=== PATIENT | male | born 1945 | race Caucasian/White ===

== ENCOUNTER 2016-07-10 14:34 | Inpatient (IN) | payer OTHER, BC ==
[~2016-07-10] VITALS: Ht 182.9 cm; Wt 96.5 kg
[~2016-07-10 14:34] MED LIST: ALBUAER2 INH; FLM4 PO; FLUTICASONE PR50 MCG; FRRG PO; HYDC25 PO; LEVO75TA36 PO; LISI40TA PO; LPT/20; METO50TA7 PO; NTRGSL/4 UT
[2016-07-10] MEDS ORDERED: LSX20 PO (14:59)
[2016-07-10] MEDS ORDERED: MONT1TAB3 PO (14:59)
[2016-07-10] MEDS ORDERED: CLOP1TAB15 PO (14:59)
[2016-07-10] MEDS ORDERED: ASPI-435 PO (14:59)
[2016-07-10] MEDS ORDERED: SERT1TAB68 PO (14:59)
[2016-07-10] MEDS ORDERED: SYMIN160 INH (14:59)
--- NOTE | 2016-07-10 15:47 | EMERGENCY ROOM VISIT NOTE ---
History Report prepared by Luciano: Roxanne Padilla Under the Supervision of: Dr. Maribel Forman D.O. First contact with patient: 15:23 Chief Complaint: INFECTION Stated Complaint: STAPH INFECTION Nursing Triage Summary: PT SAID HE HAS A BLOOD AND URINE INFECTION History of Present Illness The patient is a 71 year old male who presents to the Emergency Room with complaints of a persistent infection that began one week ago. Per the patient' s daughter, the patient started with diarrhea and rigors on Sunday. She notes that on the patient went to [facility] and was told that he has a bacterial infection. The patient states that he was there for a few days and was placed on IV antibiotics. The patient notes that they were unsure where the infection was coming from, but stated that it was in his blood. The patient states that he received a phone call from his PCP this morning noting that his blood work had been reviewed and found STAPH in his blood and urine. The patient reports that he has a prosthetic knee and his PCP is concerned that the infection will invade the area. The patient denies any current pain. The patient notes a history of a previous IL, but denies having a defibrillator. He additionally associates a loss of appetite with his symptoms today. Source of History: patient, family (daughter) Onset: one week ago Position: other (global) Quality: other (infection) Timing: other (persistent) Associated Symptoms: + chills (rigors), + diarrhea Note: Associated Symptoms: loss of appetite Review of Systems See HPI for pertinent positives & negatives. A total of 10 systems reviewed and were otherwise negative. Past Medical & Surgical Medical Problems: (1) Acute myocardial infarction (2) Asthma (3) Coronary artery disease (4) Elevated cholesterol (5) Hypertension (6) Hypothyroidism Surgical Problems: (1) H/O heart artery stent (2) H/O oral surgery (3) Status post total knee replacement, right Family History No pertinent family history stated. Social History Smoking Status: Former Smoker Marital Status: Housing Status: lives with significant other Occupation Status: employed Current/Historical Medications Scheduled Aspirin (Aspirin 81), 81 MG PO DAILY Atorvastatin (Lipitor), 80 MG PO DAILY Budesonide/Formoterol Fumarate (Symbicort 160/4.5 Inhaler ), 2 PUFFS INH BID Clopidogrel (Plavix), 75 MG PO DAILY Ferrous Gluconate (Ferrous Gluconate), 324 MG PO BIDM Fluticasone Propionate (Nasal) (Flonase Allergy Relief), 2 SPRAYS ORALIA DAILY Furosemide (Furosemide), 20 MG PO DAILY Hydrochlorothiazide (Hctz), 25 MG PO DAILY Levothyroxine Sodium (Synthroid), 88 MCG PO DAILY Lisinopril (Zestril), 40 MG PO DAILY Metoprolol Succ (Toprol Xl) (Toprol-Xl), 50 MG PO BID Montelukast Sodium (Singulair), 10 MG PO QPM Nitroglycerin (Nitrostat), 0.4 MG UT PRN Sertraline Hcl (Zoloft), 100 MG PO DAILY Tadalafil (Cialis), 20 MG PO UD Tamsulosin Hcl (Flomax), 0.4 MG PO DAILY Scheduled PRN Albuterol Hfa (Ventolin Hfa), 2 PUFFS INH Q6H PRN for SOB/Wheezing Alprazolam (Xanax), 1 TAB PO BID PRN for Anxiety Allergies Coded Allergies: Tetracycline (Verified Allergy, Unknown, RASH, 05/05/14) Physical Exam Vital Signs Date Time Temp Pulse Resp B/P Pulse Ox O2 Delivery O2 Flow Rate FiO2 07/10/16 18:50 53 19 165/83 95 Room Air 07/10/16 17:17 51 07/10/16 16:53 51 16 157/77 96 Room Air 07/10/16 16:53 96 Room Air 07/10/16 15:02 37.1 53 18 147/81 95 Room Air Physical Exam HEENT: Head - normocephalic and atraumatic Pupils are equal, round, and reactive to light. Extraocular eye muscles are intact, and sclera are anicteric. Nose - moist nasal mucosa without discharge. Mouth - moist buccal mucosa. Oropharynx is nonerythematous and there is no tonsillar exudate or edema noted. Neck: Supple; no JVD, nuchal rigidity, cervical lymphadenopathy. Heart: Regular rate and rhythm. There is a normal S1 and S2 with no murmurs, clicks, or gallops appreciated. Lungs: Clear to auscultation bilaterally with no wheezes, rales, or rhonchi. Abdomen: Soft, completely nontender, nondistended, with good bowel sounds. There are no palpable pulsatile masses or hepatosplenomegaly. There is no guarding, rigidity, or rebound noted. Extremities: No evidence of cyanosis, clubbing, or edema. There are easily palpable peripheral pulses. Skin: warm and dry with good turgor and no rashes. Medical Decision & Procedures ER Provider Diagnostic Interpretation: X-ray results as stated below per interpretation by me and the radiologist: CHEST ONE VIEW PORTABLE CLINICAL HISTORY: Sepsis. Status post infection. COMPARISON STUDY: Chest radiograph April 02, 2014. FINDINGS: Lung volumes are normal. No consolidation is identified on this exam. There is no evidence of pulmonary edema. Mild to moderate cardiomegaly is noted. No pneumothorax or pleural effusion is present. IMPRESSION: No acute cardiopulmonary findings. Electronically signed by: Kulwant Beltran M.D. 07/10/2016 4:53 PM Dictated Date/Time: 07/10/2016 4:52 PM Laboratory Results 07/10/16 15:45 Red Blood Count 4.41, Mean Corpuscular Volume 88.0, Mean Corpuscular Hemoglobin 29.7, Mean Corpuscular Hemoglobin Concent 33.8, Mean Platelet Volume 8.9, Neutrophils (%) (Auto) 73.8, Lymphocytes (%) (Auto) 11.6, Monocytes (%) (Auto) 11.0, Eosinophils (%) (Auto) 2.6, Basophils (%) (Auto) 0.4, Neutrophils # (Auto ) 6.23, Lymphocytes # (Auto) 0.98, Monocytes # (Auto) 0.93, Eosinophils # (Auto ) 0.22, Basophils # (Auto) 0.03 07/10/16 15:45 Test 07/10/16 15:45 07/10/16 16:38 White Blood Count 8.44 K/uL (4.8-10.8) Red Blood Count 4.41 M/uL (4.7-6.1) Hemoglobin 13.1 g/dL (14.0-18.0) Hematocrit 38.8 % (42-52) Mean Corpuscular Volume 88.0 fL (80-100) Mean Corpuscular Hemoglobin 29.7 pg (25-34) Mean Corpuscular Hemoglobin Concent 33.8 g/dl (32-36) Platelet Count 237 K/uL (130-400) Mean Platelet Volume 8.9 fL (7.4-10.4) Neutrophils (%) (Auto) 73.8 % Lymphocytes (%) (Auto) 11.6 % Monocytes (%) (Auto) 11.0 % Eosinophils (%) (Auto) 2.6 % Basophils (%) (Auto) 0.4 % Neutrophils # (Auto) 6.23 K/uL (1.4-6.5) Lymphocytes # (Auto) 0.98 K/uL (1.2-3.4) Monocytes # (Auto) 0.93 K/uL (0.11-0.59) Eosinophils # (Auto) 0.22 K/uL (0-0.5) Basophils # (Auto) 0.03 K/uL (0-0.2) RDW Standard Deviation 41.5 fL (36.4-46.3) RDW Coefficient of Variation 12.8 % (11.5-14.5) Immature Granulocyte % (Auto) 0.6 % Immature Granulocyte # (Auto) 0.05 K/uL (0.00-0.02) Anion Gap 9.0 mmol/L (3-11) Est Creatinine Clear Calc Drug Dose 84.0 ml/min Estimated GFR () 88.6 Estimated GFR (Non- 76.5 BUN/Creatinine Ratio 18.7 (10-20) Calcium Level 8.7 mg/dl (8.5-10.1) Total Bilirubin 0.4 mg/dl (0.2-1) Aspartate Amino Transf (AST/SGOT) 31 U/L (15-37) Alanine Aminotransferase (ALT/SGPT) 37 U/L (12-78) Alkaline Phosphatase 93 U/L (45-117) Total Protein 6.7 gm/dl (6.4-8.2) Albumin 3.1 gm/dl (3.4-5.0) Globulin 3.6 gm/dl (2.5-4.0) Albumin/Globulin Ratio 0.9 (0.9-2) Chemistry Specimen Hemolysis Bedside Lactic Acid Venous 0.88 mmol/L (0.90-1.70) Laboratory results per my review. Medications Administered Medications (Trade) Dose Ordered Sig/Macho Route Start Time Stop Time Status Last Admin Dose Admin Cefazolin Sodium (Ancef 1000mg/55 ml D5W) 1,000 mg NOW STAT IV 07/10/16 17:34 07/10/16 17:35 DC 07/10/16 18:53 1,000 MG Procedure The patient was treated with Cefazolin Sodium 1000 mg IV. ED Course 1533: Past medical records reviewed. The patient was evaluated in room C12B. A complete history and physical exam was performed. A septic protocol was performed. I spent some time reviewing the patient's inpatient records from [place]. The patient had coag-negative staph into urine cultures and 2 blood cultures. The patient was initially treated with IV vancomycin and cefepime. That was changed to ceftriaxone during his inpatient hospitalization. He was then discharged home on Augmentin. 1638: I discussed the patient's case with Nury Molina. She states that she will come evaluate the patient. 1703: I spoke to Nury Molina PA-C. I gave her all the patient's medical information. 1733: I spoke to Nury Molina PA-C. She recommends that the patient is evaluated further and states that the patient should be given a dose of Ancef. 1734: Ordered Cefazolin Sodium 1000 mg IV. 1750: I discussed the patient's case with Dr. Zayas, He is going to evaluate the patient for further treatment. Medical Decision The patient is a 71 year old male who presents to the ED with diagnosed bacteremia. Differential diagnosis includes persistent bacteremia, c-diff, medication side effects. Lab interpretation: normal white count, hemoglobin 13.1, lactic acid 0.8, LFTs are normal, BUN 19, creatinine 1. The patient had been embedded at [facility] where he was diagnosed with coag-negative staph in his urine and blood. He was discharged now this weekend on Augmentin. The PCP obtained his records from the weekend admission and were concerned about the possibility of persistent bacteremia and that the patient require further workup especially since he has a prosthetic knee. Dr. Okeefe contacted Sofia Bullock PA-C and requested that the patient be transferred here for evaluation and admission. Consults Time Called: 1630 Consulting Physician: Nury Molina PA-C Returned Call: 1638 I discussed the patient's case with Nury Molina PA-C. She states that she will come evaluate the patient. Additional Consults: Time Called: 1733 Consulted Physician: CUCO Velez Returned Call: 1750 Additional Comments: I discussed the patient's case with CUCO Velez. He is going to evaluate the patient for further treatment. Impression Primary Impression: Bacteremia Scribe Attestation The scribe's documentation has been prepared under my direction and personally reviewed by me in its entirety. I confirm that the note above accurately reflects all work, treatment, procedures, and medical decision making performed by me. Departure Information Dispostion Being Evaluated By Hospitalist Leny Leigh M.D. (PCP)
[2016-07-10 16:32] LABS: BASO % 0.4 %; BASO ABS # 0.03 K/uL (0-0.2); COMPLETE YES; EOS % 2.6 %; HEMATOCRIT 38.8 % (42-52); IG% 0.6 %; LYMPH % 11.6 %; LYMPH ABS # 0.98 K/uL (1.2-3.4); MEAN CORPUSCULAR HEMOGLOBIN 29.7 pg (25-34); MEAN CORPUSCULAR HGB CONC 33.8 g/dl (32-36); MEAN PLATELET VOLUME 8.9 fL (7.4-10.4); NEUT % 73.8 %; PLATELET COUNT 237 K/uL (130-400); RED BLOOD COUNT 4.41 M/uL (4.7-6.1); WHITE BLOOD COUNT 8.44 K/uL (4.8-10.8)
[2016-07-10 16:41] LABS: BUN/CREATININE RATIO 18.7 (10-20); CALCIUM 8.7 mg/dl (8.5-10.1)
[2016-07-10 16:44] LABS: ALB/GLOB RATIO 0.9 (0.9-2)
--- NOTE | 2016-07-10 16:55 | DIAGNOSTIC IMAGING REPORT ---
CHEST ONE VIEW PORTABLE CLINICAL HISTORY: Sepsis. Status post infection. COMPARISON STUDY: Chest radiograph April 02, 2014. FINDINGS: Lung volumes are normal. No consolidation is identified on this exam. There is no evidence of pulmonary edema. Mild to moderate cardiomegaly is noted. No pneumothorax or pleural effusion is present. IMPRESSION: No acute cardiopulmonary findings. Electronically signed by: Kulwant Beltran M.D. 07/10/2016 4:53 PM Dictated Date/Time: 07/10/2016 4:52 PM
[2016-07-10] MEDS ORDERED: TAMS0.4C38 PO (16:57)
[2016-07-10] MEDS ORDERED: HYDR25TA4 PO (16:57)
[2016-07-10] MEDS ORDERED: ATOR-26 PO (16:57)
[2016-07-10] MEDS ORDERED: VNTHFA/IN INH (16:57)
[2016-07-10] MEDS ORDERED: FLUT0.15 NAE (16:57)
[2016-07-10] MEDS ORDERED: LEVO88TA PO (16:57)
[2016-07-10] MEDS ORDERED: ALPR0.25 PO (16:57)
[2016-07-10] MEDS ORDERED: TADA20TA PO (16:57)
[2016-07-10] MEDS ORDERED: CEFAZOLIN SOD 1000MG/55 ML D5W IV STA (17:34)
[2016-07-10] MEDS ORDERED: ONDANSETRON INJ 2 MG/ML 2 ML VIAL IV PRN (20:15)
[2016-07-10] MEDS ORDERED: ALPRAZOLAM 0.25 MG TAB PO PRN (20:15)
[2016-07-10] MEDS ORDERED: NITROGLYCERIN 0.4 MG SL PER TAB CHARGE UT SCH (20:15)
[2016-07-10] MEDS ORDERED: ALUMINUM/MAGNESIUM/SIMETH (MAALOX MAX) 30 ML UDC PO PRN (20:15)
[2016-07-10] MEDS ORDERED: ALBUTEROL HFA 8 GM INHALER INH PRN (20:15)
[2016-07-10] MEDS ORDERED: POLYETHYLENE (MIRALAX) 17 GM PACK PO PRN (20:15)
[2016-07-10] MEDS ORDERED: MAGNESIUM HYDROXIDE SUSP 30 ML UDC PO PRN (20:15)
--- NOTE | 2016-07-10 20:27 | History and Physical ---
History & Physical Date & Time of Service: July 10, 2016 at 20:26 Chief Complaint: Staph Infection Primary Care Physician: Leny Okeefe M.D. Past Medical/Surgical History Medical Problems: (1) Acute myocardial infarction Status: Resolved (2) Asthma Status: Chronic (3) Coronary artery disease Status: Chronic (4) Elevated cholesterol Status: Chronic (5) Hypertension Status: Chronic (6) Hypothyroidism Status: Chronic Surgical Problems: (1) H/O heart artery stent Status: Resolved (2) H/O oral surgery Status: Resolved (3) Status post total knee replacement, right Status: Resolved Social History Smoking Status: Former Smoker Marital Status: Housing status: lives with family Occupational Status: employed Immunizations History of Influenza Vaccine: N/A History of Tetanus Vaccine?: No History of Pneumococcal: No History of Hepatitis B Vaccine: No Allergies Coded Allergies: Tetracycline (Verified Allergy, Unknown, RASH, 05/05/14) Home Medications Scheduled Aspirin (Aspirin 81), 81 MG PO DAILY Atorvastatin (Lipitor), 80 MG PO DAILY Budesonide/Formoterol Fumarate (Symbicort 160/4.5 Inhaler ), 2 PUFFS INH BID Clopidogrel (Plavix), 75 MG PO DAILY Ferrous Gluconate (Ferrous Gluconate), 324 MG PO BIDM Fluticasone Propionate (Nasal) (Flonase Allergy Relief), 2 SPRAYS ORALIA DAILY Furosemide (Furosemide), 20 MG PO DAILY Hydrochlorothiazide (Hctz), 25 MG PO DAILY Levothyroxine Sodium (Synthroid), 88 MCG PO DAILY Lisinopril (Zestril), 40 MG PO DAILY Metoprolol Succ (Toprol Xl) (Toprol-Xl), 50 MG PO BID Montelukast Sodium (Singulair), 10 MG PO QPM Nitroglycerin (Nitrostat), 0.4 MG UT PRN Sertraline Hcl (Zoloft), 100 MG PO DAILY Tadalafil (Cialis), 20 MG PO UD Tamsulosin Hcl (Flomax), 0.4 MG PO DAILY Scheduled PRN Albuterol Hfa (Ventolin Hfa), 2 PUFFS INH Q6H PRN for SOB/Wheezing Alprazolam (Xanax), 1 TAB PO BID PRN for Anxiety Physical Exam Vital Signs Date Time Temp Pulse Resp B/P Pulse Ox O2 Delivery O2 Flow Rate FiO2 5/1/17 18:50 53 19 165/83 95 Room Air 07/10/16 17:17 51 07/10/16 16:53 51 16 157/77 96 Room Air 07/10/16 16:53 96 Room Air 07/10/16 15:02 37.1 53 18 147/81 95 Room Air Diagnostics Laboratory Results Results Past 24 Hours Test 07/10/16 15:45 07/10/16 16:38 Range/Units White Blood Count 8.44 4.8-10.8 K/uL Red Blood Count 4.41 4.7-6.1 M/uL Hemoglobin 13.1 14.0-18.0 g/dL Hematocrit 38.8 42-52 % Mean Corpuscular Volume 88.0 80-100 fL Mean Corpuscular Hemoglobin 29.7 25-34 pg Mean Corpuscular Hemoglobin Concent 33.8 32-36 g/dl Platelet Count 237 130-400 K/uL Mean Platelet Volume 8.9 7.4-10.4 fL Neutrophils (%) (Auto) 73.8 % Lymphocytes (%) (Auto) 11.6 % Monocytes (%) (Auto) 11.0 % Eosinophils (%) (Auto) 2.6 % Basophils (%) (Auto) 0.4 % Neutrophils # (Auto) 6.23 1.4-6.5 K/uL Lymphocytes # (Auto) 0.98 1.2-3.4 K/uL Monocytes # (Auto) 0.93 0.11-0.59 K/uL Eosinophils # (Auto) 0.22 0-0.5 K/uL Basophils # (Auto) 0.03 0-0.2 K/uL RDW Standard Deviation 41.5 36.4-46.3 fL RDW Coefficient of Variation 12.8 11.5-14.5 % Immature Granulocyte % (Auto) 0.6 % Immature Granulocyte # (Auto) 0.05 0.00-0.02 K/uL Sodium Level 144 136-145 mmol/L Potassium Level 4.0 3.5-5.1 mmol/L Chloride Level 108 98-107 mmol/L Carbon Dioxide Level 27 21-32 mmol/L Anion Gap 9.0 3-11 mmol/L Blood Urea Nitrogen 19 7-18 mg/dl Creatinine 1.00 0.60-1.40 mg/dl Est Creatinine Clear Calc Drug Dose 84.0 ml/min Estimated GFR () 88.6 Estimated GFR (Non- 76.5 BUN/Creatinine Ratio 18.7 10-20 Random Glucose 109 70-99 mg/dl Calcium Level 8.7 8.5-10.1 mg/dl Total Bilirubin 0.4 0.2-1 mg/dl Aspartate Amino Transf (AST/SGOT) 31 15-37 U/L Alanine Aminotransferase (ALT/SGPT) 37 12-78 U/L Alkaline Phosphatase 93 45-117 U/L Total Protein 6.7 6.4-8.2 gm/dl Albumin 3.1 3.4-5.0 gm/dl Globulin 3.6 2.5-4.0 gm/dl Albumin/Globulin Ratio 0.9 0.9-2 Chemistry Specimen Hemolysis Bedside Lactic Acid Venous 0.88 0.90-1.70 mmol/L Microbiology Results 07/10/16 Blood Culture, Received Pending 07/10/16 Blood Culture, Received Pending Impression Assessment and Plan admit #[id number] VTE Prophylaxis VTE Risk Assessment Done? Y/N: Yes Risk Level: Moderate Given or contraindicated: Enoxaparin (Lovenox)SQ
[2016-07-10 21:04] VITALS: BP 180/81; PULSE 51; TEMP 36.8; O2SAT 97
[2016-07-10] MEDS: BUDESONIDE/FORMOTEROL FUMARATE 160/4.5 60 PUFFS/INHALER INH SCH (22:35)
[2016-07-10] MEDS: METOPROLOL SUCC 50MG EXT REL TAB PO SCH (22:35)
[2016-07-10] MEDS: MONTELUKAST SOD 10 MG TAB PO SCH (22:36)
[2016-07-10 22:45] VITALS: BP 180/81; PULSE 51; TEMP 36.8; O2SAT 97; Ht 182.9 cm; Wt 96.5 kg
[2016-07-10 23:18] VITALS: BP 183/85; PULSE 73; TEMP 37.4; O2SAT 95
[2016-07-11] MEDS: CEFAZOLIN IV 1,000 MG in DEXTROSE 5% 50ML 50 ML IV SCH ×2 (00:03→07:37)
--- NOTE | 2016-07-11 00:04 | HISTORY & PHYSICAL EXAMINATION ---
DATE OF ADMISSION: 07/10/2016 CHIEF COMPLAINT: Sent by Dr. Okeefe. HISTORY OF PRESENT ILLNESS: The patient is a very pleasant 71-year-old male, who notes that he was in [facility] just a couple of days ago, discharged on I believe Keflex. He had apparently had bacteremia with an acute illness that started as what seems to be gastroenteritis. He was exceedingly symptomatic when he was admitted there, apparently he still has a little bit of diarrhea that may be like 3 times a day or lasts without a whole lot of abdominal pain and no other acute active symptoms. While still waiting on records from [facility], what I can see on review of his chart in [employer] was that on July [address] abdomen and pelvis showing small bilateral pleural effusions and hiatal hernia. Liver was unremarkable. Spleen was unremarkable. Gallbladder and bile ducts unremarkable. Pancreas unremarkable. Adrenal was unremarkable. Kidneys and ureter with normal parenchymal enhancement of both kidneys, 13 mm cyst in the mid to lower pole of left kidney, 2 cm cyst in the medial mid to lower pole of the left kidney and a lobulate 2.3 cm cyst in the lower portion of the right kidney. No nephrolithiasis or hydronephrosis, mild perinephric stranding, bladder unremarkable, prostate enlarged and heterogenous. Lymph nodes, no pathologic krari enlargement of the abdomen, pelvis or inguinal region. Atherosclerotic change of the aortoiliac system, diverticula present in the descending and sigmoid colon. No evidence of acute diverticulitis. Appendix seen and does not appear abnormal. No free fluid in the abdomen and pelvis, fat containing right inguinal hernia ring noted and degenerative changes in the spine. Essentially, the conclusion was mild uncomplicated diverticulosis and it was done under the diagnosis of abdominal pain and fever. On the same day, a chest x-ray was done which showed no acute cardiopulmonary findings; appears to have been a two-view PA and lateral. His blood culture results showed greater than 100,000 staph and not staph aureus, susceptible to gentamicin, nitrofurantoin, oxacillin, resistant to pen G, susceptible to tetracycline, trimethoprim, sulfamethoxazole and vancomycin. It appears Dr. Okeefe requested an urgent ID referral and then ID requested that the patient be sent to the ER. Today, he is asymptomatic other than a little bit of diarrhea. He notes no pain that is not his chronic pain, no shortness of breath that is not chronic related to his asthma, no joint pain, no red hot swollen joints and his only real acute complaint is a now resolving diarrhea. REVIEW OF SYSTEMS: Otherwise negative, except for as above. PAST MEDICAL HISTORY: Includes allergic rhinitis; arthritis; asthma; BPH; coronary artery disease status post cath and stenting, he apparently had a small VT, but it provoked a cardiac arrest at that time, that was about a decade ago; Judi's thyroiditis now with hypothyroidism; hypertension; hyperlipidemia; low testosterone and OCD. MEDICATIONS: Alprazolam 0.25 b.i.d. p.r.n., aspirin 81 mg daily, atorvastatin 80 mg daily, Cialis 20 mg p.r.n., Plavix 75 mg daily, fluticasone 50 mcg two sprays each nostril daily, Lasix 20 mg daily, hydrochlorothiazide 25 mg daily, Synthroid 88 mcg daily, lisinopril 40 mg daily, metoprolol ER 50 mg b.i.d., Singulair 10 mg daily, sertraline 100 mg daily, Symbicort 160/4.5 two puffs b.i.d., Flomax 0.4 at bedtime, albuterol two puffs q. 4 hours p.r.n. shortness of breath or wheeze. PAST SURGICAL HISTORY: Includes; cath and stenting, knee replacement, hernia repair and hand surgery. FAMILY HISTORY: Includes cancer and diabetes. SOCIAL HISTORY: He is a former smoker. . ALLERGIES: TETRACYCLINE. PHYSICAL EXAMINATION: VITAL SIGNS: Temperature 37.1, pulse 53, respiratory rate 18, blood pressure 147/81 and 95% on room air. GENERAL: He is awake, alert, oriented x3, pleasant, in no acute distress. He does have constant throat clearing, which he relates to postnasal drip. HEENT: Normocephalic and atraumatic. Mucous membranes are moist. CARDIOVASCULAR: Regular without rubs, murmurs or gallops. LUNGS: Clear to auscultation bilaterally. No rales, rhonchi or wheezes, with good effort. ABDOMEN: Soft, nondistended, nontender. No masses or organomegaly. EXTREMITIES: Without cyanosis, clubbing or edema. No calf tenderness. SKIN: Shows no rashes, no pallor or icterus. no stigmata of septic emboli. NEUROLOGIC: Shows cranial nerves II-XII to be grossly intact. Gross motor and sensory are intact. SKIN: Shows no rashes, no pallor or icterus. MUSCULOSKELETAL: Shows no joint effusions. Normal alignment and mobility. MENTAL STATE: Shows good recent and remote recall. Normal mood and affect. Good judgment and insight. LABORATORIES AND DIAGNOSTICS: CBC shows a white count of 8.44, hemoglobin 13.1, platelets 237. Complete metabolic panel with sodium 144, potassium 4, chloride 108, CO2 27, BUN 19, creatinine 1, calcium 8.7, glucose 109, lactate 0.88. Total bili 0.4 with an AST of 31, ALT 37, alkaline phosphatase 93, total protein 6.7, albumin 3.1. Chest x-ray shows no acute cardiopulmonary findings. ASSESSMENT AND PLAN: 1. Bacteremia and infectious disease referral. He was sent to the Emergency Room. We will consult them for further recommendations. Check an echocardiogram, continue him on gram positive coverage with Ancef. Blood cultures have been drawn and are pending and we will follow serial exams, although fortunately he shows no stigmata of sequelae. 2. Coronary artery disease. Continue his home medications. 3. Asthma. Continue his Symbicort and Ventolin p.r.n. 4. Benign prostatic hypertrophy. Continue his Flomax. Outpatient evaluation; given an enlarged heterogenous prostate on his CT. 5. Deep venous thrombosis prophylaxis, Lovenox. 6. Hyperlipidemia. Continue his Lipitor. 7. Hypothyroidism. Continue his Synthroid. 8. Hypertension. Continue his diuretics, MARQUITA inhibitor and beta meera. 9. Obsessive compulsive disorder, continue his sertraline. [facility]
[2016-07-11] MEDS ORDERED: IV FLUIDS COMPLETED PRN (00:45)
[2016-07-11] MEDS: LEVOTHYROXINE 88 MCG TAB PO SCH (06:06)
[2016-07-11 07:29] VITALS: BP 196/100; PULSE 59; TEMP 36.7; O2SAT 96
[2016-07-11] MEDS: SERTRALINE HCL 100 MG TAB PO SCH (07:40)
[2016-07-11] MEDS: LISINOPRIL 40 MG TAB PO SCH (07:40)
[2016-07-11] MEDS: ENOXAPARIN 40 MG/0.4 ML SYR SQ SCH (07:40)
[2016-07-11] MEDS: CLOPIDOGREL BISULFATE 75 MG TAB PO SCH (07:40)
[2016-07-11] MEDS: METOPROLOL SUCC 50MG EXT REL TAB PO SCH ×2 (07:41→20:00)
[2016-07-11] MEDS: FUROSEMIDE 20 MG TAB PO SCH (07:41)
[2016-07-11] MEDS: ASPIRIN 81 MG ECTAB PO SCH (07:41)
[2016-07-11] MEDS: FERROUS GLUCONATE 324 MG TAB PO SCH ×2 (07:41→17:00)
[2016-07-11] MEDS: HYDROCHLOROTHIAZIDE 25 MG TAB PO SCH (07:41)
[2016-07-11] MEDS: TAMSULOSIN HCL 0.4 MG CAP PO SCH (07:41)
[2016-07-11] MEDS: FLUTICASONE PROPIONATE NA SPR 16 GM BTL NAE SCH (07:42)
[2016-07-11] MEDS: BUDESONIDE/FORMOTEROL FUMARATE 160/4.5 60 PUFFS/INHALER INH SCH ×2 (07:42→19:44)
[2016-07-11] MEDS: ATORVASTATIN 40 MG TAB PO SCH (07:42)
--- NOTE | 2016-07-11 09:25 | Medical Consult ---
Consultation Date of Consultation: July 10, 2016. Attending Physician: Gonzalez Zayas D.O. Reason for Consultation: Bacteremia History of Present Illness Patient is a 71 yo male presenting to the ED for evaluation by recommendation of Dr. Okeefe, the patient's PCP and the ID service. I received a phone call this afternoon about seeing this patient for 'staph sepsis' from recent admission to [facility]. The patient had previously been experiencing fever at home, rigors, sweats, and overall malaise. The patient was found to have coag-negative staph bacteremia and received 2-3 days of IV abx therapy at [facility]. He was then discharged home on PO antibiotic therapy. He did not have repeat blood cultures completed. He was sent home with oral antibiotic therapy. His primary care physician was concerned with his discharge on oral antibiotics and to due to his history of bilateral prosthetic knees. Patient overall has been feeling better prior to current admission. Since admission, the patient did have repeat blood cultures drawn which are currently pending. His platelet was 8.44. His creatinine was 1.00. Hepatitis-C screen is negative. He did have a chest x-ray as well which showed no acute cardiopulmonary findings. I did discuss this patient with Dr. Okeefe and Dr. Forman. Initial blood cultures from admission to [facility] growing Coag-negative staph resistant to PCN but otherwise sensitive to oxacillin, gentamicin, macrobid, tetracycline, Bactrim, and Vancomycin, and Urine culture grew staph species, not S. aureus with the same sensitivity pattern. Confirmed that a repeat set of blood culture was not drawn at [facility]. CT scan was completed and reviewed from [facility]. Mild perinephric stranding was noted on the report, but laterality was not specified. Past Medical/Surgical History Medical Problems: (1) Bacteremia Status: Acute Medical Problems: (1) Acute myocardial infarction (2) Asthma (3) Coronary artery disease (4) Elevated cholesterol (5) Hypertension (6) Hypothyroidism Surgical Problems: (1) H/O heart artery stent (2) H/O oral surgery (3) Status post total knee replacement, right Family History Noncontributory Social History Smoking Status: Former Smoker Marital Status: Housing Status: lives with significant other Occupation Status: employed Allergies Coded Allergies: Tetracycline (Verified Allergy, Unknown, RASH, 05/05/14) Home Medications Reported Home Medications Medications Dose Route/Sig Max Daily Dose Days Date Category Ventolin Hfa (Albuterol) 200 Puffs/34596 Mcg Aers 2 Puffs INH Q6H PRN 07/10/16 Reported Synthroid (Levothyroxine Sodium) 88 Mcg Tab 88 Mcg PO DAILY 07/10/16 Reported Hctz (Hydrochlorothiazide) 25 Mg Tab 25 Mg PO DAILY 07/10/16 Reported Flonase Allergy Relief (Fluticasone Propionate (Nasal)) 50 Mcg/Act Spr 2 Sprays ORLAIA DAILY 07/10/16 Reported Cialis (Tadalafil) 20 Mg Tab 20 Mg PO UD 07/10/16 Reported Lipitor (Atorvastatin Calcium) 80 Mg Tab 80 Mg PO DAILY 07/10/16 Reported Xanax (Alprazolam) 0.25 Mg Tab 1 Tab PO BID PRN 30 07/10/16 Reported Flomax (Tamsulosin Hcl) 0.4 Mg Cap 0.4 Mg PO DAILY 07/10/16 Reported Ferrous Gluconate 324 Mg Tab 324 Mg PO BIDM 05/06/14 Rx Plavix (Clopidogrel Bisulfate) 75 Mg Tab 75 Mg PO DAILY 04/02/14 Reported Zoloft (Sertraline Hcl) 100 Mg Tab 100 Mg PO DAILY 04/02/14 Reported Furosemide 20 Mg Tab 20 Mg PO DAILY 04/02/14 Reported Symbicort 160/4.5 Inhaler (Budesonide/Formoterol Fumarate) Aero 2 Puffs INH BID 04/02/14 Reported Singulair (Montelukast Sodium) 10 Mg Tab 10 Mg PO QPM 04/02/14 Reported Aspirin 81 (Aspirin) 81 Mg Tab 81 Mg PO DAILY 04/02/14 Reported Toprol-Xl (Metoprolol Succinate) 50 Mg Tabcr 50 Mg PO BID 04/20/09 Reported Zestril (Lisinopril) 40 Mg Tab 40 Mg PO DAILY 04/20/09 Reported Nitrostat (Nitroglycerin) 0.4 Mg Tab 0.4 Mg UT PRN 04/20/09 Reported Current Inpatient Medications Current Inpatient Medications Medications (Trade) Dose Ordered Sig/Macho Route Start Time Stop Time Status Last Admin Dose Admin Albuterol (Ventolin Hfa Inhaler) 2 puffs Q6H PRN INH 07/10/16 20:15 08/09/16 20:14 Alprazolam (Xanax Tab) 0.25 mg BID PRN PO 07/10/16 20:15 08/09/16 20:14 Aspirin (Ecotrin Tab) 81 mg DAILY PO 07/11/16 08:00 08/10/16 08:59 07/11/16 07:41 81 MG Atorvastatin Calcium (Lipitor Tab) 80 mg DAILY PO 07/11/16 08:00 08/10/16 08:59 07/11/16 07:42 80 MG Budesonide/ Formoterol Fumarate (Symbicort 160/ 4.5 Inh) 2 puffs BID INH 07/10/16 20:59 08/09/16 20:59 07/11/16 07:42 2 PUFFS Clopidogrel Bisulfate (plAVix TAB) 75 mg DAILY PO 07/11/16 08:00 08/10/16 08:59 07/11/16 07:40 75 MG Ferrous Gluconate (Ferrous Gluconate Tab) 324 mg BIDM PO 07/11/16 08:00 08/10/16 07:59 07/11/16 07:41 324 MG Fluticasone Propionate (Flonase Nasal [place]) 2 sprays DAILY ORALIA 07/11/16 08:00 08/10/16 08:59 07/11/16 07:42 2 SPRAYS Furosemide (Lasix Tab) 20 mg DAILY PO 07/11/16 08:00 08/10/16 08:59 07/11/16 07:41 20 MG Hydrochlorothiazide (Hydrochlorothiazide Tab) 25 mg DAILY PO 07/11/16 08:00 08/10/16 08:59 07/11/16 07:41 25 MG Levothyroxine Sodium (Synthroid Tab) 88 mcg DAILYBB PO 07/11/16 06:30 08/10/16 06:29 07/11/16 06:06 88 MCG Lisinopril (Zestril Tab) 40 mg DAILY PO 07/11/16 08:00 08/10/16 08:59 07/11/16 07:40 40 MG Metoprolol Succinate (Toprol Xl Tab) 50 mg BID PO 07/10/16 20:59 08/09/16 20:59 07/11/16 07:41 50 MG Montelukast Sodium (Singulair Tab) 10 mg QPM PO 07/10/16 21:00 08/09/16 20:59 07/10/16 22:36 10 MG Nitroglycerin (Nitrostat Tab) 0.4 mg PRN UT 07/10/16 20:15 08/09/16 20:14 Sertraline HCl (Zoloft Tab) 100 mg DAILY PO 07/11/16 08:00 08/10/16 08:59 07/11/16 07:40 100 MG Tamsulosin HCl (Flomax Cap) 0.4 mg DAILY PO 07/11/16 08:00 08/10/16 08:59 07/11/16 07:41 0.4 MG Enoxaparin Sodium (Lovenox Inj) 40 mg Q24H SQ 07/11/16 08:00 08/10/16 07:59 07/11/16 07:40 40 MG Acetaminophen (Tylenol Tab) 650 mg Q4H PRN PO 07/10/16 20:15 08/09/16 20:14 Al Hydrox/Mg Hydrox/Simethicone (Maalox Max Susp) 15 ml Q4H PRN PO 07/10/16 20:15 08/09/16 20:14 Magnesium Hydroxide (Milk Of Magnesia Susp) 30 ml Q6H PRN PO 07/10/16 20:15 08/09/16 20:14 Polyethylene (Miralax Powder Packet) 17 gm DAILY PRN PO 07/10/16 20:15 08/09/16 20:14 Ondansetron HCl 4 mg 4 mg Q6H PRN IV 07/10/16 20:15 08/09/16 20:14 Cefazolin Sodium/ Dextrose (Ancef Iv/D5 50ml) 55 ml @ 100 mls/hr Q8H IV 07/11/16 00:00 07/25/16 00:00 07/11/16 07:37 100 MLS/HR Miscellaneous (Iv Fluids Completed) 1 ea PRN PRN N/A 07/11/16 00:45 07/11/17 00:44 Review of Systems Constitutional: No chills, No fever, No sweats, No weakness Eyes: No worsening of vision ENT: No hearing loss Respiratory: No cough, No shortness of breath Cardiovascular: No chest pain Abdomen: + diarrhea (mild), No pain, No vomiting Musculoskeletal: + problem reported (hx bilateral TKA), No joint pain Genitourinary - Male: + problem reported (hx prostatomegaly), No dysuria, No hematuria Neurologic: No numbness/tingling Integumentary: No itch, No new/changing skin lesions, No rash Physical Exam Date Time Temp Pulse Resp B/P Pulse Ox O2 Delivery O2 Flow Rate FiO2 07/11/16 07:29 36.7 59 18 196/100 96 Room Air 07/11/16 00:00 Room Air 07/10/16 23:18 37.4 73 18 183/85 95 Room Air 07/10/16 22:45 36.8 51 20 180/81 97 Room Air 07/10/16 21:04 36.8 51 20 180/81 97 07/10/16 20:46 55 18 155/73 94 07/10/16 20:30 55 18 155/73 94 Room Air 07/10/16 18:50 53 19 165/83 95 Room Air 07/10/16 17:17 51 07/10/16 16:53 51 16 157/77 96 Room Air 07/10/16 16:53 96 Room Air 07/10/16 15:02 37.1 53 18 147/81 95 Room Air General Appearance: WD/WN, no apparent distress Head: normocephalic, atraumatic Eyes: normal inspection, sclerae normal ENT: hearing grossly normal Neck: supple, trachea midline Respiratory/Chest: chest non-tender, lungs clear, normal breath sounds, no respiratory distress, no accessory muscle use Cardiovascular: + bradycardia Abdomen/GI: normal bowel sounds, non tender, soft Back: normal inspection Extremities/Musculoskelatal: normal inspection, normal range of motion Neurologic/Psych: alert, normal mood/affect Skin: normal color, warm/dry, no rash Laboratory Results CHEST ONE VIEW PORTABLE CLINICAL HISTORY: Sepsis. Status post infection. COMPARISON STUDY: Chest radiograph April 02, 2014. FINDINGS: Lung volumes are normal. No consolidation is identified on this exam. There is no evidence of pulmonary edema. Mild to moderate cardiomegaly is noted. No pneumothorax or pleural effusion is present. IMPRESSION: No acute cardiopulmonary findings. Item Value Date Time Blood Culture Received 07/10/16 1630 Blood Pending Blood Culture Received 07/10/16 1545 Blood Pending Last 24 Hours Test 07/10/16 15:45 07/10/16 16:38 07/11/16 06:09 White Blood Count 8.44 K/uL Red Blood Count 4.41 M/uL Hemoglobin 13.1 g/dL Hematocrit 38.8 % Mean Corpuscular Volume 88.0 fL Mean Corpuscular Hemoglobin 29.7 pg Mean Corpuscular Hemoglobin Concent 33.8 g/dl Platelet Count 237 K/uL Mean Platelet Volume 8.9 fL Neutrophils (%) (Auto) 73.8 % Lymphocytes (%) (Auto) 11.6 % Monocytes (%) (Auto) 11.0 % Eosinophils (%) (Auto) 2.6 % Basophils (%) (Auto) 0.4 % Neutrophils # (Auto) 6.23 K/uL Lymphocytes # (Auto) 0.98 K/uL Monocytes # (Auto) 0.93 K/uL Eosinophils # (Auto) 0.22 K/uL Basophils # (Auto) 0.03 K/uL RDW Standard Deviation 41.5 fL RDW Coefficient of Variation 12.8 % Immature Granulocyte % (Auto) 0.6 % Immature Granulocyte # (Auto) 0.05 K/uL Sodium Level 144 mmol/L Potassium Level 4.0 mmol/L Chloride Level 108 mmol/L Carbon Dioxide Level 27 mmol/L Anion Gap 9.0 mmol/L Blood Urea Nitrogen 19 mg/dl Creatinine 1.00 mg/dl Est Creatinine Clear Calc Drug Dose 84.0 ml/min Estimated GFR () 88.6 Estimated GFR (Non- 76.5 BUN/Creatinine Ratio 18.7 Random Glucose 109 mg/dl Calcium Level 8.7 mg/dl Total Bilirubin 0.4 mg/dl Aspartate Amino Transf (AST/SGOT) 31 U/L Alanine Aminotransferase (ALT/SGPT) 37 U/L Alkaline Phosphatase 93 U/L Total Protein 6.7 gm/dl Albumin 3.1 gm/dl Globulin 3.6 gm/dl Albumin/Globulin Ratio 0.9 Chemistry Specimen Hemolysis Bedside Lactic Acid Venous 0.88 mmol/L Prothrombin Time 11.0 SECONDS Prothromb Time International Ratio 1.0 Assessment & Plan Patient recently admitted to [facility] for concerns of acute illness. The patient was found to have Coag-negative staph bacteremia, staph, non-staph aureus UTI (via previous cultures), and sepsis. He was treated with IV therapy for 2-3 days and discharged home on PO abx. Readmitted with concerns of undertreatment of coag-negative staph bacteremia. Current blood cultures are pending, but patient was placed on IV Ancef in the ED which based on previous culture is appropriate, but will increase to 2 g. Will check TTE, and also will consider further lumbar/renal imaging pending blood culture results with continued left lumbar/flank pain. We will continue to follow. PROVIDER ADDENDUM: Pt. examined and reviewed with Ms. Bullock. Agree with above assessment.
[2016-07-11 10:54] VITALS: BP 135/69; PULSE 87
--- NOTE | 2016-07-11 13:06 | Infectious Disease Progress Nt ---
Progress Note Date of Service July 11, 2016. Subjective Pt evaluation today including: conversation w/ patient, conversation w/ family (sister), physical exam, chart review, lab review, review of studies, conversation w/ client support consultant (Dr. Bynum), review of inpatient medication list Patient continues to feel well. His blood cultures are pending. Echo pending completion. Patient is having urinary frequency, but this is chronic. He also complains of left flank pain, but that is also chronic in nature. He continues to have some very mild loose stools as well. He states that these are gradually becoming more formed. He otherwise is tolerating his current antibiotic therapy well. He is on IV Ancef. All Other Systems: Reviewed and Negative Medications Current Inpatient Medications Medications (Trade) Dose Ordered Sig/Macho Route Start Time Stop Time Status Last Admin Dose Admin Albuterol (Ventolin Hfa Inhaler) 2 puffs Q6H PRN INH 07/10/16 20:15 08/09/16 20:14 Alprazolam (Xanax Tab) 0.25 mg BID PRN PO 07/10/16 20:15 08/09/16 20:14 Aspirin (Ecotrin Tab) 81 mg DAILY PO 07/11/16 08:00 08/10/16 08:59 07/11/16 07:41 81 MG Atorvastatin Calcium (Lipitor Tab) 80 mg DAILY PO 07/11/16 08:00 08/10/16 08:59 07/11/16 07:42 80 MG Budesonide/ Formoterol Fumarate (Symbicort 160/ 4.5 Inh) 2 puffs BID INH 07/10/16 20:59 08/09/16 20:59 07/11/16 07:42 2 PUFFS Clopidogrel Bisulfate (plAVix TAB) 75 mg DAILY PO 07/11/16 08:00 08/10/16 08:59 07/11/16 07:40 75 MG Ferrous Gluconate (Ferrous Gluconate Tab) 324 mg BIDM PO 07/11/16 08:00 08/10/16 07:59 07/11/16 07:41 324 MG Fluticasone Propionate (Flonase Nasal [place]) 2 sprays DAILY ORALIA 07/11/16 08:00 08/10/16 08:59 07/11/16 07:42 2 SPRAYS Furosemide (Lasix Tab) 20 mg DAILY PO 07/11/16 08:00 08/10/16 08:59 07/11/16 07:41 20 MG Hydrochlorothiazide (Hydrochlorothiazide Tab) 25 mg DAILY PO 07/11/16 08:00 08/10/16 08:59 07/11/16 07:41 25 MG Levothyroxine Sodium (Synthroid Tab) 88 mcg DAILYBB PO 07/11/16 06:30 08/10/16 06:29 07/11/16 06:06 88 MCG Lisinopril (Zestril Tab) 40 mg DAILY PO 07/11/16 08:00 08/10/16 08:59 07/11/16 07:40 40 MG Metoprolol Succinate (Toprol Xl Tab) 50 mg BID PO 07/10/16 20:59 08/09/16 20:59 07/11/16 07:41 50 MG Montelukast Sodium (Singulair Tab) 10 mg QPM PO 07/10/16 21:00 08/09/16 20:59 07/10/16 22:36 10 MG Nitroglycerin (Nitrostat Tab) 0.4 mg PRN UT 07/10/16 20:15 08/09/16 20:14 Sertraline HCl (Zoloft Tab) 100 mg DAILY PO 07/11/16 08:00 08/10/16 08:59 07/11/16 07:40 100 MG Tamsulosin HCl (Flomax Cap) 0.4 mg DAILY PO 07/11/16 08:00 08/10/16 08:59 07/11/16 07:41 0.4 MG Enoxaparin Sodium (Lovenox Inj) 40 mg Q24H SQ 07/11/16 08:00 08/10/16 07:59 07/11/16 07:40 40 MG Acetaminophen (Tylenol Tab) 650 mg Q4H PRN PO 07/10/16 20:15 08/09/16 20:14 Al Hydrox/Mg Hydrox/Simethicone (Maalox Max Susp) 15 ml Q4H PRN PO 07/10/16 20:15 08/09/16 20:14 Magnesium Hydroxide (Milk Of Magnesia Susp) 30 ml Q6H PRN PO 07/10/16 20:15 08/09/16 20:14 Polyethylene (Miralax Powder Packet) 17 gm DAILY PRN PO 07/10/16 20:15 08/09/16 20:14 Ondansetron HCl (Zofran Inj) 4 mg Q6H PRN IV 07/10/16 20:15 08/09/16 20:14 Miscellaneous 1 ea 1 ea PRN PRN N/A 07/11/16 00:45 07/11/17 00:44 Ceftriaxone Sodium/Dextrose (Rocephin Inj/D5 50ml) 70 ml @ 100 mls/hr Q24H IV 07/11/16 10:45 07/21/16 10:44 UNV Objective Vital Signs Date Time Temp Pulse Resp B/P Pulse Ox O2 Delivery O2 Flow Rate FiO2 07/11/16 10:54 87 135/69 07/11/16 08:00 Room Air 07/11/16 07:29 36.7 59 18 196/100 96 Room Air 07/11/16 00:00 Room Air 07/10/16 23:18 37.4 73 18 183/85 95 Room Air 07/10/16 22:45 36.8 51 20 180/81 97 Room Air 07/10/16 21:04 36.8 51 20 180/81 97 07/10/16 20:46 55 18 155/73 94 07/10/16 20:30 55 18 155/73 94 Room Air 07/10/16 18:50 53 19 165/83 95 Room Air 07/10/16 17:17 51 07/10/16 16:53 51 16 157/77 96 Room Air 07/10/16 16:53 96 Room Air 07/10/16 15:02 37.1 53 18 147/81 95 Room Air Physical Exam General Appearance: WD/WN, no apparent distress Eyes: normal inspection, sclerae normal ENT: hearing grossly normal Neck: supple, trachea midline Respiratory/Chest: chest non-tender, lungs clear, normal breath sounds, no respiratory distress, no accessory muscle use Cardiovascular: regular rate, rhythm Abdomen: normal bowel sounds, non tender, soft Extremities: normal inspection, no pedal edema Neurologic/Psychiatric: alert, normal mood/affect Skin: normal color, warm/dry, no rash Laboratory Results Item Value Date Time Blood Culture Received 07/10/16 1630 Blood Pending Blood Culture Received 07/10/16 1545 Blood Pending Last 24 Hours Test 07/10/16 15:45 07/10/16 16:38 07/11/16 06:09 07/11/16 11:22 White Blood Count 8.44 K/uL Red Blood Count 4.41 M/uL Hemoglobin 13.1 g/dL Hematocrit 38.8 % Mean Corpuscular Volume 88.0 fL Mean Corpuscular Hemoglobin 29.7 pg Mean Corpuscular Hemoglobin Concent 33.8 g/dl Platelet Count 237 K/uL Mean Platelet Volume 8.9 fL Neutrophils (%) (Auto) 73.8 % Lymphocytes (%) (Auto) 11.6 % Monocytes (%) (Auto) 11.0 % Eosinophils (%) (Auto) 2.6 % Basophils (%) (Auto) 0.4 % Neutrophils # (Auto) 6.23 K/uL Lymphocytes # (Auto) 0.98 K/uL Monocytes # (Auto) 0.93 K/uL Eosinophils # (Auto) 0.22 K/uL Basophils # (Auto) 0.03 K/uL RDW Standard Deviation 41.5 fL RDW Coefficient of Variation 12.8 % Immature Granulocyte % (Auto) 0.6 % Immature Granulocyte # (Auto) 0.05 K/uL Sodium Level 144 mmol/L Potassium Level 4.0 mmol/L Chloride Level 108 mmol/L Carbon Dioxide Level 27 mmol/L Anion Gap 9.0 mmol/L Blood Urea Nitrogen 19 mg/dl Creatinine 1.00 mg/dl Est Creatinine Clear Calc Drug Dose 84.0 ml/min Estimated GFR () 88.6 Estimated GFR (Non- 76.5 BUN/Creatinine Ratio 18.7 Random Glucose 109 mg/dl Calcium Level 8.7 mg/dl Total Bilirubin 0.4 mg/dl Aspartate Amino Transf (AST/SGOT) 31 U/L Alanine Aminotransferase (ALT/SGPT) 37 U/L Alkaline Phosphatase 93 U/L Total Protein 6.7 gm/dl Albumin 3.1 gm/dl Globulin 3.6 gm/dl Albumin/Globulin Ratio 0.9 Chemistry Specimen Hemolysis Bedside Lactic Acid Venous 0.88 mmol/L Prothrombin Time 11.0 SECONDS Prothromb Time International Ratio 1.0 Hepatitis C Antibody Screen NEG Assessment and Plan Patient recently admitted to [facility] for concerns of acute illness. The patient was found to have Coag-negative staph bacteremia, staph species, non -staph aureus UTI (via previous cultures), and sepsis. He was treated with IV therapy for 2-3 days and discharged home on PO abx. Readmitted with concerns of undertreatment of coag-negative staph bacteremia. Current blood cultures are pending. Patient is currently on IV Ancef. Will transition to IV ceftriaxone 2 grams daily for continued therapy since this patient will likely require at least 2 weeks of IV antibiotic therapy this will be easiest to use as outpatient. Echo is pending. Patient will likely need a PICC line, but recommending to hold placement pending repeat blood cultures. Will also repeat urinalysis and urine culture with previously positive urine. Will continue to follow. PROVIDER ADDENDUM: Pt. reviewed with Ms. Bullock. Agree with above assessment.
[2016-07-11] MEDS ORDERED: CEFTRIAXONE SOD INJ 2,000 MG in DEXTROSE 5% 50ML 50 ML IV SCH (14:00)
[2016-07-11 14:50] LABS: URINE APPEARANCE CLEAR (CLEAR); URINE BILIRUBIN NEG (NEG); URINE COLOR YELLOW; URINE NITRITE NEG (NEG); URINE PH 5.5 (4.5-7.5); URINE SPECIFIC GRAVITY 1.014 (1.000-1.030); UROBILINOGEN NEG (NEG)
[2016-07-11 14:56] LABS: MANUAL MICROSCOPIC REQUIRED? NO; REVIEW REQ? NO
[2016-07-11 15:26] VITALS: BP 161/85; PULSE 49; TEMP 37; O2SAT 96
[2016-07-11] MEDS ORDERED: CEFAZOLIN IV 2,000 MG in DEXTROSE 5% 50ML 50 ML IV SCH (16:00)
--- NOTE | 2016-07-11 16:09 | Progress Note ---
Subjective Date of Service: July 11, 2016. Subjective pt is feeling some of his chronic left flank discomfort. no other issues. Problem List Medical Problems: (1) Bacteremia Status: Acute Review of Systems Constitutional: No chills, No fever, No weakness Respiratory: No cough, No shortness of breath, No sputum Cardiac: No PND, No chest pain, No edema, No orthopnea Abdomen: No diarrhea, No nausea, No pain, No vomiting Musculoskeletal: + muscle pain Male : No dysuria, No urinary frequency Objective Vital Signs Date Time Temp Pulse Resp B/P Pulse Ox O2 Delivery O2 Flow Rate FiO2 07/11/16 15:26 37.0 49 20 161/85 96 Room Air 07/11/16 10:54 87 135/69 07/11/16 08:00 Room Air 07/11/16 07:29 36.7 59 18 196/100 96 Room Air 07/11/16 00:00 Room Air 07/10/16 23:18 37.4 73 18 183/85 95 Room Air 07/10/16 22:45 36.8 51 20 180/81 97 Room Air 07/10/16 21:04 36.8 51 20 180/81 97 07/10/16 20:46 55 18 155/73 94 07/10/16 20:30 55 18 155/73 94 Room Air 07/10/16 18:50 53 19 165/83 95 Room Air 07/10/16 17:17 51 07/10/16 16:53 51 16 157/77 96 Room Air 07/10/16 16:53 96 Room Air Physical Exam General Appearance: WD/WN, + mild distress Neck: supple, no JVD Respiratory/Chest: chest non-tender, lungs clear, normal breath sounds Cardiovascular: regular rate, rhythm, no murmur Abdomen: normal bowel sounds, soft, + tenderness (left cva no spinal pain ) Extremities: no pedal edema, no calf tenderness Neurologic/Psychiatric: alert, oriented x 3 Laboratory Results Last 24 Hours Test 07/10/16 16:38 07/11/16 06:09 07/11/16 12:38 07/11/16 14:21 Bedside Lactic Acid Venous 0.88 mmol/L Prothrombin Time 11.0 SECONDS Prothromb Time International Ratio 1.0 Hepatitis C Antibody Screen NEG Erythrocyte Sedimentation Rate 15 mm/hr C-Reactive Protein 5.11 mg/dl Urine Color YELLOW Urine Appearance CLEAR Urine pH 5.5 Urine Specific [place] 1.014 Urine Protein NEG Urine Glucose (UA) NEG Urine Ketones NEG Urine Occult Blood NEG Urine Nitrite NEG Urine Bilirubin NEG Urine Urobilinogen NEG Urine Leukocyte Esterase NEG Assessment and Plan 71 M recent MSSA bacteremia from pyelonephritis, persents for definitive treatment of MSSA sepsis ID will coordinate care, ECHO pending, piccl line to be placed and rocephin 2 gms iv daily started with target for two weeks of treatment Asthma. stable on exam, continue his Symbicort and Ventolin p.r.n. Benign prostatic hypertrophy. Flomax. enlarged heterogenous prostate on his CT will continue urology follow up Hypertension. Continue his diuretics, MARQUITA inhibitor and beta meera. Deep venous thrombosis prophylaxis, Lovenox. Obsessive compulsive disorder, continue his sertraline.
--- NOTE | 2016-07-11 17:15 | ECHOCARDIOGRAM REPORT ---
*NOTICE TO RECEIVING REPUBLICAN AGENCY This information is strictly Confidential and protected under [place] law. [place] law prohibits you from making any further disclosure of this information unless further disclosure is expressly permitted by the written consent of the person to whom it pertains or is authorized by law. A general authorization for the release of medical or other information is not sufficient for this purpose. Hospital accepts no responsibility if the information is made available to any other person, INCLUDING THE PATIENT. Interpretation Summary * Name: LUZ REYNA Study Date: 07/11/2016 02:21 PM BP: 135/69 mmHg * Patient Location: [id number] HR: 87 * : 1945 (M/d/yyyy) Gender: Male Height: 72 in * Age: 71 yrs Ethnicity: CA Weight: 212 lb * Ordering Physician: Gonzalez Zayas * Performed By: Odette Hammond * * Reason For Study: BACTEREMIA * BSA: 2.2 m2 * -- Conclusions -- * Left ventricular systolic function is normal. * No regional wall motion abnormalities noted. * Ejection Fraction = 60-65%. * There is mild concentric left ventricular hypertrophy. * There is mild tricuspid regurgitation. Procedure Details * A complete two-dimensional transthoracic echocardiogram was performed (2D, M-mode, Doppler and color flow Doppler). Left Ventricle * The left ventricle is normal in size. * There is mild concentric left ventricular hypertrophy. * Ejection Fraction = 60-65%. * Left ventricular systolic function is normal. * No regional wall motion abnormalities noted. Right Ventricle * The right ventricular cavity size is normal (basal dimension <4.2 cm in right ventricular apical 4-chamber view). * The right ventricular systolic function is normal as assessed by tricuspid annular plane systolic excursion (TAPSE) (normal >1.5 cm). Atria * The left atrium is mildly dilated. * Right atrial size is normal. * No ASD detected; PFO is not assessed. Mitral Valve * The mitral valve is grossly normal. * There is no mitral valve stenosis. * Significant mitral regurgitation is absent. Tricuspid Valve * The tricuspid valve is not well visualized, but is grossly normal. * There is no tricuspid stenosis. * There is mild tricuspid regurgitation. Aortic Valve * The aortic valve is trileaflet. * The aortic valve opens well. * Aortic valve sclerosis moderate, without significant aortic valvular stenosis. * Trace aortic regurgitation. Pulmonic Valve * The pulmonary valve is not well seen, but the Doppler examination is normal without significant regurgitation or stenosis. Great Vessels * The aortic root is normal size. * The pulmonary is not well visualized. Pericardium/Pleural * There is no pericardial effusion. Great Vessels * Normal inferior vena cava size and collapsability with sniff indicates a normal right atrial pressure of 3 mmHg MMode 2D Measurements and Calculations IVSd 1.9 cm IVSs 3.0 cm LVIDd 5.0 cm LVIDs 2.9 cm LVPWd 1.2 cm LVPWs 1.9 cm IVS/LVPW 1.6 FS 41.2 % EDV(Teich) 117.2 ml ESV(Teich) 33.1 ml EF(Teich) 71.8 % EDV(cubed) 123.6 ml ESV(cubed) 25.2 ml EF(cubed) 79.6 % % IVS thick 55.8 % % LVPW thick 57.4 % LV mass(C)d 342.8 grams LV mass(C)dI 156.9 grams/m\S\2 LV mass(C)s 379.9 grams LV mass(C)sI 173.9 grams/m\S\2 SV(Teich) 84.2 ml SI(Teich) 38.5 ml/m\S\2 SV(cubed) 98.5 ml SI(cubed) 45.1 ml/m\S\2 ACS 1.3 cm LA dimension 4.7 cm asc Aorta Diam 4.1 cm LVOT diam 1.8 cm LVOT area 2.4 cm\S\2 LVAd ap4 36.6 cm\S\2 LVLd ap4 8.1 cm EDV(MOD-sp4) 136.2 ml EDV(sp4-el) 140.5 ml LVAs ap4 19.3 cm\S\2 LVLs ap4 6.6 cm ESV(MOD-sp4) 49.3 ml ESV(sp4-el) 47.9 ml EF(MOD-sp4) 63.8 % EF(sp4-el) 65.9 % LVAd ap2 35.7 cm\S\2 LVLd ap2 8.5 cm EDV(MOD-sp2) 127.6 ml EDV(sp2-el) 126.9 ml LVAs ap2 17.4 cm\S\2 LVLs ap2 6.8 cm ESV(MOD-sp2) 36.3 ml ESV(sp2-el) 37.7 ml EF(MOD-sp2) 71.6 % EF(sp2-el) 70.3 % LVLd %diff 5.4 % EDV(MOD-bp) 131.7 ml LVLs %diff 3.5 % ESV(MOD-bp) 42.6 ml EF(MOD-bp) 67.6 % SV(MOD-sp4) 86.9 ml SI(MOD-sp4) 39.8 ml/m\S\2 SV(MOD-sp2) 91.3 ml SI(MOD-sp2) 41.8 ml/m\S\2 SV(MOD-bp) 89.0 ml SI(MOD-bp) 40.8 ml/m\S\2 SV(sp4-el) 92.6 ml SI(sp4-el) 42.4 ml/m\S\2 SV(sp2-el) 89.2 ml SI(sp2-el) 40.9 ml/m\S\2 Doppler Measurements and Calculations MV E max gurdeep 78.2 cm/sec MV A max gurdeep 77.1 cm/sec MV E/A 1.0 MV dec time 0.30 sec Ao V2 max 192.8 cm/sec Ao max PG 14.9 mmHg Ao max PG (full) 6.8 mmHg ABDIAS(V,A) 1.8 cm\S\2 ABDIAS(V,D) 1.8 cm\S\2 AI max gurdeep 365.6 cm/sec AI max PG 53.5 mmHg AI dec slope 86.3 cm/sec\S\2 AI P1/2t 1240.9 msec LV V1 max PG 8.0 mmHg LV V1 max 141.8 cm/sec PA V2 max 116.5 cm/sec PA max PG 5.4 mmHg TR max gurdeep 272.5 cm/sec
[2016-07-11] MEDS ORDERED: NURSING VERBAL MED ORDER ONE ×2 (17:30→22:30)
[2016-07-11 19:49] VITALS: BP 169/81; PULSE 46; O2SAT 96
[2016-07-11] MEDS: MONTELUKAST SOD 10 MG TAB PO SCH (19:50)
[2016-07-11 19:58] VITALS: O2SAT 96
[2016-07-11 22:12] VITALS: BP 185/87; PULSE 53; TEMP 36.6; O2SAT 98
[2016-07-11] MEDS: HydrALAZINE HCL 20 MG/ML VIAL IV. PRN (22:38)
[2016-07-12 00:07] VITALS: BP 185/87; PULSE 80; TEMP 36.7; O2SAT 94
[2016-07-12 00:30] VITALS: BP 168/80; PULSE 50
[2016-07-12 04:11] VITALS: BP 160/82; PULSE 52
[2016-07-12] MEDS: HydrALAZINE HCL 20 MG/ML VIAL IV. PRN (05:14)
[2016-07-12] MEDS: LEVOTHYROXINE 88 MCG TAB PO SCH (05:15)
[2016-07-12] MEDS: ACETAMINOPHEN 325 MG TAB PO PRN ×2 (05:21→11:43)
[2016-07-12 06:58] VITALS: BP 147/77; PULSE 49; TEMP 36.7; O2SAT 96
[2016-07-12] MEDS: METOPROLOL SUCC 50MG EXT REL TAB PO SCH (08:00)
[2016-07-12] MEDS: ENOXAPARIN 40 MG/0.4 ML SYR SQ SCH ×2 (08:00→09:10)
[2016-07-12] MEDS ORDERED: CEFT1INJ26 IV (08:05)
--- NOTE | 2016-07-12 08:07 | Discharge Instructions ---
Discharge Instructions Date of Service July 12, 2016. Admission Reason for Admission: Bacteremia Discharge Discharge Diagnosis / Problem: staph bacteremia Discharge Goals Goal(s): Diagnostic testing, Therapeutic intervention Activity Recommendations Activity Limitations: resume your previous activity (with typical picc line care) . Current Hospital Diet Patient's current hospital diet: AHA Diet (Heart Healthy) Discharge Diet Recommended Diet: Regular Diet Pending Studies Studies pending at discharge: yes List of pending studies: final culture results Medical Emergencies . Who to Call and When: Medical Emergencies: If at any time you feel your situation is an emergency, please call 911 immediately. . Non-Emergent Contact Non-Emergency issues call your: Primary Care Provider Call Non-Emergent contact if: temperature is above 101, your pain is unusual for you . . "Provider Documentation" section prepared by Nilay Greenfield. . VTE Core Measure Inpt VTE Proph given/why not?: Enoxaparin (Lovenox)SQ
[2016-07-12] MEDS: BUDESONIDE/FORMOTEROL FUMARATE 160/4.5 60 PUFFS/INHALER INH SCH (09:07)
[2016-07-12] MEDS: FLUTICASONE PROPIONATE NA SPR 16 GM BTL NAE SCH (09:07)
[2016-07-12] MEDS: FUROSEMIDE 20 MG TAB PO SCH (09:08)
[2016-07-12] MEDS: ATORVASTATIN 40 MG TAB PO SCH (09:08)
[2016-07-12] MEDS: CLOPIDOGREL BISULFATE 75 MG TAB PO SCH (09:08)
[2016-07-12] MEDS: ASPIRIN 81 MG ECTAB PO SCH (09:08)
[2016-07-12] MEDS: TAMSULOSIN HCL 0.4 MG CAP PO SCH (09:09)
[2016-07-12] MEDS: HYDROCHLOROTHIAZIDE 25 MG TAB PO SCH (09:09)
[2016-07-12] MEDS: LISINOPRIL 40 MG TAB PO SCH (09:09)
[2016-07-12] MEDS: SERTRALINE HCL 100 MG TAB PO SCH (09:10)
[2016-07-12] MEDS ORDERED: CEFTRIAXONE SOD INJ 2,000 MG in DEXTROSE 5% 50ML 50 ML IV SCH (11:15)
[2016-07-12 11:33] VITALS: BP 134/71; PULSE 51; TEMP 36.7; O2SAT 97
--- NOTE | 2016-07-12 11:35 | Infectious Disease Progress Nt ---
Progress Note Date of Service July 12, 2016. Subjective Pt evaluation today including: conversation w/ patient, physical exam, chart review, lab review, review of studies, conversation w/ [employer] consultant (Dr. Greenfield ), review of inpatient medication list Patient is feeling well this morning. Blood cultures showing NGTD. PICC line was placed in the RUE. Patient anticipating D/C home this afternoon. ESR was 15 , and CRP was 5.11. Urinalysis was clear, urine culture pending. No complaints of pain, no N/V/D. All Other Systems: Reviewed and Negative Medications Current Inpatient Medications Medications (Trade) Dose Ordered Sig/Macho Route Start Time Stop Time Status Last Admin Dose Admin Albuterol (Ventolin Hfa Inhaler) 2 puffs Q6H PRN INH 07/10/16 20:15 08/09/16 20:14 Alprazolam (Xanax Tab) 0.25 mg BID PRN PO 07/10/16 20:15 08/09/16 20:14 Aspirin (Ecotrin Tab) 81 mg DAILY PO 07/11/16 08:00 08/10/16 08:59 07/12/16 09:08 81 MG Atorvastatin Calcium (Lipitor Tab) 80 mg DAILY PO 07/11/16 08:00 08/10/16 08:59 07/12/16 09:08 80 MG Budesonide/ Formoterol Fumarate (Symbicort 160/ 4.5 Inh) 2 puffs BID INH 07/10/16 20:59 08/09/16 20:59 07/12/16 09:07 2 PUFFS Clopidogrel Bisulfate (plAVix TAB) 75 mg DAILY PO 07/11/16 08:00 08/10/16 08:59 07/12/16 09:08 75 MG Fluticasone Propionate (Flonase Nasal [place]) 2 sprays DAILY [place]AL[place] 07/11/16 08:00 08/10/16 08:59 07/12/16 09:07 2 SPRAYS Furosemide (Lasix Tab) 20 mg DAILY PO 07/11/16 08:00 08/10/16 08:59 07/12/16 09:08 20 MG Hydrochlorothiazide (Hydrochlorothiazide Tab) 25 mg DAILY PO 07/11/16 08:00 08/10/16 08:59 07/12/16 09:09 25 MG Levothyroxine Sodium (Synthroid Tab) 88 mcg DAILYBB PO 07/11/16 06:30 08/10/16 06:29 07/12/16 05:15 88 MCG Lisinopril (Zestril Tab) 40 mg DAILY PO 07/11/16 08:00 08/10/16 08:59 07/12/16 09:09 40 MG Metoprolol Succinate (Toprol Xl Tab) 50 mg BID PO 07/10/16 20:59 08/09/16 20:59 07/11/16 07:41 50 MG Montelukast Sodium (Singulair Tab) 10 mg QPM PO 07/10/16 21:00 08/09/16 20:59 07/11/16 19:50 10 MG Nitroglycerin (Nitrostat Tab) 0.4 mg PRN UT 07/10/16 20:15 08/09/16 20:14 Sertraline HCl (Zoloft Tab) 100 mg DAILY PO 07/11/16 08:00 08/10/16 08:59 07/12/16 09:10 100 MG Tamsulosin HCl (Flomax Cap) 0.4 mg DAILY PO 07/11/16 08:00 08/10/16 08:59 07/12/16 09:09 0.4 MG Enoxaparin Sodium (Lovenox Inj) 40 mg Q24H SQ 07/11/16 08:00 08/10/16 07:59 07/11/16 07:40 40 MG Acetaminophen (Tylenol Tab) 650 mg Q4H PRN PO 07/10/16 20:15 08/09/16 20:14 07/12/16 05:21 650 MG Al Hydrox/Mg Hydrox/Simethicone (Maalox Max Susp) 15 ml Q4H PRN PO 07/10/16 20:15 08/09/16 20:14 Magnesium Hydroxide (Milk Of Magnesia Susp) 30 ml Q6H PRN PO 07/10/16 20:15 08/09/16 20:14 Polyethylene (Miralax Powder Packet) 17 gm DAILY PRN PO 07/10/16 20:15 08/09/16 20:14 Ondansetron HCl (Zofran Inj) 4 mg Q6H PRN IV 07/10/16 20:15 08/09/16 20:14 Miscellaneous (Iv Fluids Completed) 1 ea PRN PRN N/A 07/11/16 00:45 07/11/17 00:44 Hydralazine HCl (HydrALAZINE INJ) 10 mg Q4H PRN IV. 07/11/16 22:45 08/10/16 22:44 07/12/16 05:14 10 MG Heparin Sodium (Porcine) 5 ml 5 ml PRN PRN FLUSH 07/12/16 00:15 08/11/16 00:14 07/12/16 05:15 5 ML Ceftriaxone Sodium/Dextrose (Rocephin Inj/D5 50ml) 70 ml @ 100 mls/hr Q24H IV 07/12/16 11:15 07/22/16 11:14 07/12/16 11:27 100 MLS/HR Objective Vital Signs Date Time Temp Pulse Resp B/P Pulse Ox O2 Delivery O2 Flow Rate FiO2 07/12/16 08:00 Room Air 07/12/16 06:58 36.7 49 18 147/77 96 Room Air 07/12/16 04:11 52 160/82 07/12/16 00:30 50 168/80 07/12/16 00:07 36.7 80 20 185/87 94 Room Air 07/12/16 00:00 Room Air 07/11/16 22:12 36.6 53 20 185/87 98 Room Air 07/11/16 19:58 96 Room Air 07/11/16 19:49 46 16 169/81 96 Room Air 07/11/16 16:00 Room Air 07/11/16 15:26 37.0 49 20 161/85 96 Room Air Physical Exam General Appearance: WD/WN, no apparent distress Eyes: normal inspection, sclerae normal ENT: hearing grossly normal Neck: supple, trachea midline Respiratory/Chest: no respiratory distress, no accessory muscle use Cardiovascular: regular rate, rhythm Extremities: + pertinent finding (PICC line in RUE) Neurologic/Psychiatric: alert, normal mood/affect Skin: normal color, warm/dry, no rash Laboratory Results Item Value Date Time Blood Culture Received 07/10/16 1630 Blood Pending Blood Culture Received 07/10/16 1545 Blood Pending Blood Culture - Preliminary Resulted 07/10/16 1630 Blood NO GROWTH TO DATE. Blood Culture - Preliminary Resulted 07/10/16 1545 Blood NO GROWTH TO DATE. Urine Culture Received 07/11/16 1421 Urine , Clean Catch Pending Last 24 Hours Test 07/11/16 12:38 07/11/16 14:21 Erythrocyte Sedimentation Rate 15 mm/hr C-Reactive Protein 5.11 mg/dl Urine Color YELLOW Urine Appearance CLEAR Urine pH 5.5 Urine Specific [place] 1.014 Urine Protein NEG Urine Glucose (UA) NEG Urine Ketones NEG Urine Occult Blood NEG Urine Nitrite NEG Urine Bilirubin NEG Urine Urobilinogen NEG Urine Leukocyte Esterase NEG Assessment and Plan Patient recently admitted to [facility] for concerns of acute illness. The patient was found to have Coag-negative staph bacteremia, staph species, non -staph aureus UTI (via previous cultures), and sepsis. He was treated with IV therapy for 2-3 days and discharged home on PO abx. Readmitted with concerns of undertreatment of coag-negative staph bacteremia. Current blood cultures are showing NGTD. Echo showed no evidence of vegetations. Patient is currently on IV Ceftriaxone 2 g daily. He does have [address] but has had no acute changes with them. Recommend continuing IV Ceftriaxone to complete at least 2 weeks with anticipation that pending patient state/labwork he ultimately may require 4 weeks. We will follow up as outpatient. OK for D/C from ID perspective. PROVIDER ADDENDUM: Pt. reviewed with Ms. Bullock. Agree with above assessment.
--- NOTE | 2016-07-12 16:11 | Discharge Summary ---
Discharge Summary Date of Service July 12, 2016. Discharge Summary Admission Date: July 11, 2016 at 16:10 Discharge Date: July 12, 2016 Discharge Disposition: Home Principal Diagnosis: staph bacteremia Immunizations: Have You Had Influenza Vaccine: N/A History of Tetanus Vaccine?: No History of Pneumococcal: No History of Hepatitis B Vaccine: No Procedures: echocardiogram without valvular vegetations Consultations: infectious disease Medication Reconciliation New Medications: Ceftriaxone Sodium (Rocephin) 1 Gm Inj 2 GM IV DAILY for 12 Days Continued Medications: Albuterol Hfa (Ventolin Hfa) 200 Puffs/63420 Mcg Aers 2 PUFFS INH Q6H PRN for SOB/Wheezing, #1 INHALER Alprazolam (Xanax) 0.25 Mg Tab 1 TAB PO BID PRN for Anxiety for 30 Days, #60 TAB Aspirin (Aspirin 81) 81 Mg Tab 81 MG PO DAILY Atorvastatin (Lipitor) 80 Mg Tab 80 MG PO DAILY, TAB Budesonide/Formoterol Fumarate (Symbicort 160/4.5 Inhaler ) Aero 2 PUFFS INH BID, INHALER Clopidogrel (Plavix) 75 Mg Tab 75 MG PO DAILY, TAB Ferrous Gluconate (Ferrous Gluconate) 324 Mg Tab 324 MG PO BIDM, #60 TAB Fluticasone Propionate (Nasal) (Flonase Allergy Relief) 50 Mcg/Act Spr 2 SPRAYS [place]AL[place] DAILY Furosemide (Furosemide) 20 Mg Tab 20 MG PO DAILY Hydrochlorothiazide (Hctz) 25 Mg Tab 25 MG PO DAILY, TAB Levothyroxine Sodium (Synthroid) 88 Mcg Tab 88 MCG PO DAILY, TAB Lisinopril (Zestril) 40 Mg Tab 40 MG PO DAILY, 0 Refills Metoprolol Succ (Toprol Xl) (Toprol-Xl) 50 Mg Tabcr 50 MG PO BID Montelukast Sodium (Singulair) 10 Mg Tab 10 MG PO QPM, TAB Nitroglycerin (Nitrostat) 0.4 Mg Tab 0.4 MG UT PRN, 0 Refills Sertraline Hcl (Zoloft) 100 Mg Tab 100 MG PO DAILY, TAB Tadalafil (Cialis) 20 Mg Tab 20 MG PO UD, TAB Tamsulosin Hcl (Flomax) 0.4 Mg Cap 0.4 MG PO DAILY, CAP Discharge Exam Review of Systems: Constitutional: No chills, No fever Respiratory: No cough, No sputum Cardiovascular: No chest pain, No edema, No orthopnea Abdomen: No diarrhea, No nausea, No pain Genitourinary - Female: No dysuria, No urinary frequency Physical Exam: General Appearance: WD/WN, no apparent distress Eyes: PERRL, EOMI Neck: supple, no adenopathy Respiratory/Chest: chest non-tender, lungs clear, normal breath sounds Cardiovascular: regular rate, rhythm, no murmur Abdomen / GI: normal bowel sounds, non tender, soft Extremities: no pedal edema, normal range of motion Neurologic/Psychiatric: alert, oriented x 3 Hospital Course 71 M recent MSSA bacteremia from pyelonephritis, persents for definitive treatment of MSSA sepsis ID will coordinate care, ECHO normal no vegetations, picc line placed and rocephin 2 gms iv daily started with target for two weeks of treatment Asthma. stable on exam, continue his Symbicort and Ventolin p.r.n. Benign prostatic hypertrophy. no vooiding difficulties Flomax. enlarged heterogenous prostate on his CT will continue urology follow up Hypertension. reasonable control diuretics, MARQUITA inhibitor and beta meera. Deep venous thrombosis prophylaxis, Lovenox. Obsessive compulsive disorder, continue his sertraline. Total Time Spent: Greater than 30 minutes This includes examination of the patient, discharge planning, medication reconciliation, and communication with other providers. Discharge Instructions Please refer to the electronic Patient Visit Report (Discharge Instructions) for additional information.
== END 2016-07-12 13:15 | disposition home health service (06) | DRG 872 ==
LOC: ENRESERVDT → ENRESERVTM → C.EDB 14:35 → C.MS4W 20:16 → OBSVTOIN 07-11 16:10
PROVIDERS: ADMIT Family Medicine; ATTEND Internal Medicine
PROC: 02HV33Z Insertion of Infusion Device into Superior Vena Cava, Percutaneous Approach (ICD-10-PCS; principal; 2016-07-11)
DX: A41.01 Sepsis due to Methicillin susceptible Staphylococcus aureus (principal); N12 Tubulo-interstitial nephritis, not specified as acute or chronic; Z16.11 Resistance to penicillins; I10 Essential (primary) hypertension; E03.9 Hypothyroidism, unspecified; E78.5 Hyperlipidemia, unspecified; N40.1 Benign prostatic hyperplasia with lower urinary tract symptoms; R35.0 Frequency of micturition; I25.10 Atherosclerotic heart disease of native coronary artery without angina pectoris; J45.909 Unspecified asthma, uncomplicated; M19.90 Unspecified osteoarthritis, unspecified site; G89.29 Other chronic pain; R10.9 Unspecified abdominal pain; F42.9 Obsessive-compulsive disorder, unspecified; I25.2 Old myocardial infarction; Z96.651 Presence of right artificial knee joint; Z95.5 Presence of coronary angioplasty implant and graft; Z86.74 Personal history of sudden cardiac arrest; Z87.891 Personal history of nicotine dependence; Z79.82 Long term (current) use of aspirin; Z79.51 Long term (current) use of inhaled steroids; Z79.02 Long term (current) use of antithrombotics/antiplatelets; Z79.899 Other long term (current) drug therapy

== ENCOUNTER → 2016-07-21 | Outpatient (CLI) | payer OTHER, BC ==
[~2016-07-21] MED LIST changes: -ALBUAER2 INH; +ALPR0.25 PO; +ASPI-435 PO; +ATOR-26 PO; +CEFT1INJ26 IV; +CLOP1TAB15 PO; -FLM4 PO; +FLUT0.15 NAE; -FLUTICASONE PR50 MCG; -HYDC25 PO; +HYDR25TA4 PO; -LEVO75TA36 PO; +LEVO88TA PO; -LPT/20; +LSX20 PO; +MONT1TAB3 PO; +SERT1TAB68 PO; +SYMIN160 INH; +TADA20TA PO; +TAMS0.4C38 PO; +VNTHFA/IN INH
[2016-07-21 13:44] LABS: PROLACTIN 13.9 ng/mL
[2016-07-21 15:51] LABS: THYROID STIMULATING HORMONE 2.3 uIu/ml (0.300-4.500)
== END | disposition home or self-care (01) ==
LOC: C.LABMFLN 10:46
PROVIDERS: ATTEND Internal Medicine Endocrinology, Diabetes & Metabolism
DX: N40.1 Benign prostatic hyperplasia with lower urinary tract symptoms (principal); E03.9 Hypothyroidism, unspecified; N52.9 Male erectile dysfunction, unspecified; R53.83 Other fatigue; E06.3 Autoimmune thyroiditis

== ENCOUNTER → 2016-10-02 | Outpatient (CLI) | payer OTHER, BC ==
[2016-10-02 18:29] LABS: PROSTATE SPECIFIC ANTIGEN 3.43 ng/ml (0.000-4.000); THYROID STIMULATING HORMONE 2.24 uIu/ml (0.300-4.500)
== END | disposition home or self-care (01) ==
LOC: C.LABMFLN 14:51
PROVIDERS: ATTEND Urology
DX: E03.9 Hypothyroidism, unspecified (principal); N39.0 Urinary tract infection, site not specified; N40.1 Benign prostatic hyperplasia with lower urinary tract symptoms

== ENCOUNTER → 2016-11-14 | Outpatient (CLI) | payer OTHER, BC ==
[2016-11-14 12:43] LABS: BASO % 0.6 %; BASO ABS # 0.04 K/uL (0-0.2); COMPLETE YES; HEMATOCRIT 38.8 % (42-52); IG% 0.2 %; LYMPH % 20.2 %; LYMPH ABS # 1.34 K/uL (1.2-3.4); MEAN CORPUSCULAR HEMOGLOBIN 30.2 pg (25-34); MEAN CORPUSCULAR HGB CONC 35.1 g/dl (32-36); MEAN PLATELET VOLUME 9.1 fL (7.4-10.4); MONO % 12.3 %; NEUT % 63.7 %; PLATELET COUNT 184 K/uL (130-400); RED BLOOD COUNT 4.51 M/uL (4.7-6.1); WHITE BLOOD COUNT 6.65 K/uL (4.8-10.8)
[2016-11-14 14:11] LABS: ALT/SGPT 17 U/L (12-78); AST/SGOT 15 U/L (15-37); BLOOD UREA NITROGEN 22 mg/dl (7-18); BUN/CREATININE RATIO 18.2 (10-20); CALCIUM 8.6 mg/dl (8.5-10.1); CARBON DIOXIDE 30 mmol/L (21-32); CHLORIDE 111 mmol/L (98-107); GLUCOSE 101 mg/dl (70-99); POTASSIUM 3.6 mmol/L (3.5-5.1); SODIUM 144 mmol/L (136-145)
[2016-11-14 14:15] LABS: ALB/GLOB RATIO 1.2 (0.9-2); ALKALINE PHOSPHATASE 101 U/L (45-117); CHOLESTEROL 136 mg/dl (0-200); CHOLESTEROL/HDL RATIO 3.7; HDL CHOLESTEROL 37 mg/dl; LDL CHOLESTEROL CALCULATED 79 mg/dl; TRIGLYCERIDES 101 mg/dl (0-150); VERY LOW DENSITY LIPOPROT CALC 20 mg/dl
== END | disposition home or self-care (01) ==
LOC: C.LABMFLN 11:09
PROVIDERS: ATTEND Family Medicine
DX: I25.10 Atherosclerotic heart disease of native coronary artery without angina pectoris (principal); E78.5 Hyperlipidemia, unspecified

== ENCOUNTER → 2017-05-24 | Outpatient (CLI) | payer OTHER, BC ==
[~2017-05-24] MED LIST changes: -METO50TA7 PO; +METO50TA8 PO
== END | disposition home or self-care (01) ==
LOC: C.LABMFLN 09:16
PROVIDERS: ATTEND Family Medicine
DX: E03.9 Hypothyroidism, unspecified (principal); N39.0 Urinary tract infection, site not specified; N40.1 Benign prostatic hyperplasia with lower urinary tract symptoms

== ENCOUNTER → 2017-10-15 | Outpatient (CLI) | payer OTHER, BC | END | disposition home or self-care (01) | LOC: C.LAB 16:04 | PROVIDERS: ATTEND Urology | DX: Z01.89 Encounter for other specified special examinations (principal) ==

== ENCOUNTER 2023-12-04 11:34 | Observation (INO) ==
--- NOTE | 2023-11-26 10:13 | Anesthesiology Consultation ---
Date of Service November 26, 2023 Assessment & Plan (1) Encounter for pre-operative examination: Chart Review Chart Review: Acceptable Risk for Surgery and Patient NOT seen in Pre Admission Testing Consults Requested none Additional Notes will need updated ECG prior to surgery History Surgery Operation Date: 12/04/23 08:50 Proposed Procedures p Transurethral Resection Prostate - Geovanny Galvan MD Height/Weight Height: 6 ft Weight: 90.718 kg Allergies Allergy/AdvReac Type Severity Reaction Status Date / Time grass pollen Allergy Mild Watery Verified 11/23/23 09:18 eyes, runny nose tetracycline Allergy Mild RASH Verified 11/23/23 09:18 Medications Home Medications Medication Instructions Recorded Confirmed Last Taken finasteride 5 mg tablet 5 mg PO QAM #90 tabs 06/01/21 11/23/23 Unknown sildenafil 100 mg tablet (Viagra) 100 mg PO DAILY PRN sexual 06/01/21 11/23/23 Unknown activity #10 tabs tamsulosin 0.4 mg capsule 0.4 mg PO HS #90 caps 06/01/21 11/23/23 Unknown aspirin 81 mg chewable tablet 81 mg PO DAILY 10/24/21 11/23/23 Unknown Lactobacillus acidophilus 10 mg PO QAM 02/15/22 11/23/23 Unknown loperamide 2 mg capsule 2 mg PO Q4H PRN Diarrhea 02/15/22 11/23/23 Unknown furosemide 20 mg tablet (Lasix) 20 mg PO DAILY #30 tabs 02/16/22 11/23/23 Unknown azelastine 137 mcg (0.1 %) nasal 2 spray intranasal BID PRN Nasal 05/30/22 11/23/23 Unknown spray Congestion #30 mL cetirizine 10 mg capsule (Zyrtec) 10 mg PO QAM #90 caps 05/30/22 11/23/23 Unknown montelukast 10 mg tablet 10 mg PO DAILY #90 tabs 05/30/22 11/23/23 Unknown budesonide-formoterol HFA 160 2 puff inhalation BID Wheezing 06/20/22 11/23/23 Unknown mcg-4.5 mcg/actuation aerosol #10.2 grams inhaler (Symbicort) potassium chloride 10 mEq 20 meq (2 x 10 mEq) PO DAILY #180 07/18/22 11/23/23 Unknown capsule,extended release caps metoprolol succinate 50 mg 50 mg PO BID #180 tabs 11/24/22 11/23/23 Unknown tablet,extended release 24 hr losartan 100 mg tablet 100 mg PO QAM #90 tabs 11/30/22 11/23/23 Unknown atorvastatin 80 mg tablet 80 mg PO QAM #90 tabs 12/06/22 11/23/23 Unknown albuterol sulfate 90 mcg/actuation See Rx Instructions .Route 01/30/23 11/23/23 Unknown aerosol inhaler (Ventolin HFA) .COMPLEX #18 grams sertraline 100 mg tablet 100 mg PO QAM #90 tabs 02/21/23 11/23/23 Unknown memantine 5 mg tablet 5 mg PO BID #180 tabs 07/18/23 11/23/23 Unknown nitroglycerin 0.4 mg sublingual 0.4 mg sublingual Q5M PRN chest 08/08/23 11/23/23 Unknown tablet pain #10 tabs apixaban 5 mg tablet 5 mg PO BID #60 tabs 10/29/23 11/23/23 Unknown pantoprazole 40 mg tablet,delayed 40 mg PO BID #180 tabs 11/02/23 11/23/23 Unknown release donepezil 10 mg tablet 10 mg PO QAM 11/23/23 11/23/23 Unknown levothyroxine 137 mcg tablet 137 mcg PO QAM 11/23/23 11/23/23 Unknown (Synthroid) omeprazole 20 mg capsule,delayed 20 mg PO QAM 11/23/23 11/23/23 Unknown release Past Medical History Medical History (Updated 11/26/23 @ 10:10 by Hardeep Engel DO) 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 Patient and unsure (has followed with Dr. Zuleta in past) Hx of myocardial infarction ? year "long time ago" Hypertension Hyperlipidemia Asthma recent use of rescue inhaler GERD (gastroesophageal reflux disease) Chronic hoarseness Elevated PSA Stable - follows with Dr. Hummel Past Family History Family History (Updated 11/23/23 @ 09:35 by Lyric Mark, RN) Father Diabetes Heart disease Hypertension Family/Other Prostate cancer Cancer Sister Diabetes Other No family history of adverse response to anesthesia Denies family history of Ovarian cancer Myocardial infarction Breast cancer Colorectal cancer Past Surgical History Surgical History (Updated 11/23/23 @ 09:44 by Lyric Mark RN) History of esophagogastroduodenoscopy (EGD) History of total knee replacement right/left H/O hernia repair History of tooth extraction History of heart artery stent ? number (placed at time of ND "long time ago") @ [facility] History of rotator cuff surgery 04/22/2020 Right supraspinatus, subscapularis + biceps tenodesis History of hernia surgery H/O hand surgery RIGHT Social History Smoking Status: Former smoker tobacco type: cigarettes Do You Dip or Chew Tobacco: No Smoking End Date: "quit over 42 years ago" ? year Hx Alcohol Use: No Hx Substance Use: No substance use type: does not use Testing Echocardiogram Date: 10/19/21 EF: 50-54 LV Function: normal
[~2023-12-04 11:34] MED LIST changes: -ALPR0.25 PO; -ASPI-435 PO; -ATOR-26 PO; -CEFT1INJ26 IV; -CLOP1TAB15 PO; -FLUT0.15 NAE; -FRRG PO; -HYDR25TA4 PO; -LEVO88TA PO; -LISI40TA PO; -LSX20 PO; -METO50TA8 PO; -MONT1TAB3 PO; -NTRGSL/4 UT; -SERT1TAB68 PO; -SYMIN160 INH; -TADA20TA PO; -TAMS0.4C38 PO; -VNTHFA/IN INH; +cefTRIAXone SODIUM 1,000 MG MINI-B 50 ML IV SCH
[2023-12-04] MEDS ORDERED: LIDOCAINE 2% 20 MG/ML 5 ML SYR IV ONE (11:49)
[2023-12-04] MEDS ORDERED: PROPOFOL IV EMULSION 10 MG/ML 20 ML VIAL IV ONE (11:49)
[2023-12-04] MEDS ORDERED: fentaNYL citrate PF 100 MCG/2 ML VIAL ONE (11:49)
[2023-12-04] MEDS: LACTATED RINGER'S 1,000 ML IV SCH (12:28)
--- NOTE | 2023-12-04 12:34 | History & Physical Bridge Note ---
Date of Service December 04, 2023 History & Physical Bridge Note I have examined the patient, reviewed the History & Physical and in the interval since the performance of the History & Physical I have noted the following changes of clinical significance: no changes noted
[2023-12-04] MEDS ORDERED: ePHEDrine sulfate 50 MG/ML AMP IV PRN (12:37)
[2023-12-04] MEDS ORDERED: ATROPINE SULFATE 0.1 MG/ML 10ML SYR IV PRN (12:37)
[2023-12-04] MEDS ORDERED: ONDANSETRON INJ 2 MG/ML 2 ML VIAL IV PRN (12:37)
[2023-12-04] MEDS ORDERED: fentaNYL citrate PF 100 MCG/2 ML VIAL IV PRN (12:37)
[2023-12-04] MEDS ORDERED: ePHEDrine sulfate 50 MG/5 ML SYR ONE (13:17)
[2023-12-04] MEDS ORDERED: PHENYLEPHRINE 100MCG/ML 10ML SYR IV ONE (13:24)
[2023-12-04] MEDS: cefTRIAXone SODIUM 2,000 MG MINI-B 50 ML IV SCH (15:08)
[2023-12-04] MEDS ORDERED: ACETAMINOPHEN 325 MG TAB PO PRN (15:10)
[2023-12-04] MEDS ORDERED: NITROGLYCERIN SL 0.4 MG/TAB TAB SL PRN (15:10)
[2023-12-04] MEDS ORDERED: ALBUTEROL HFA 8 GM INHALER INH PRN (15:10)
--- NOTE | 2023-12-04 15:16 | Anesthesiology Progress Note ---
Date of Service December 04, 2023 Anesthesia Post Procedure Vital Signs Vital Signs: Temp Pulse Pulse Resp BP BP Pulse Ox 12/04/23 14:55 37.0 C 84 15 146/89 H 98 12/04/23 14:45 87 12 154/90 H 99 12/04/23 14:35 85 25 H 144/90 H 99 12/04/23 14:25 81 16 154/108 H 100 12/04/23 14:19 36.2 C L 96 H 14 167/105 H 98 12/04/23 12:16 12/04/23 12:16 36.2 C L 80 20 142/91 H 95 O2 Del Method O2 Flow Rate 12/04/23 14:55 Nasal Cannula 2 12/04/23 14:45 Nasal Cannula 2 12/04/23 14:35 Nasal Cannula 3 12/04/23 14:25 Nasal Cannula 3 12/04/23 14:19 Nasal Cannula 3 12/04/23 12:16 Room Air 12/04/23 12:16 Room Air Transfer of Care Handoff Completed per policy Notes Mental Status: alert / awake / arousable Patient Amnestic to Procedure: Yes Nausea / Vomiting: adequately controlled Pain: adequately controlled Airway Patency, RR, SpO2: stable & adequate BP & HR: stable & adequate Hydration State: stable & adequate Anesthetic Complications: no major complications apparent and Pt Satisfied with anesthetic care
--- NOTE | 2023-12-04 15:35 | Operative Report ---
PG Post Operative Report Pre & Post Diagnosis Operation Date: 12/04/23 13:10 Pre-Op Diagnosis: Benign Prostate Hyperplasia with Lower Urinary Tract Symptoms Post-Op Diagnosis: Benign Prostate Hyperplasia with Lower Urinary Tract Symptoms I identified the patient and participated in the time-out.: Yes Procedure Operation Date: 12/04/23 13:10 Actual Procedures p TURP (Transurethral Resection of Prostate, urethral dilation)(Not Applicable) - Geovanny Galvan MD Surgeon Geovanny Galvan MD Puppy Sitter none Estimated Blood Loss 10 Findings Consistent with Post-Op Diagnosis Specimens Prostate chips for routine pathology Description of Procedure The patient was identified in the preoperative holding area, appropriate informed consents were reviewed and completed and the patient was transferred to the operative suite. Upon arrival, appropriate antibiotics and anesthesia were administered and the patient was placed in dorsal lithotomy position and prepped and draped in sterile fashion. Begin the case I attempted to pass a 27 [place] resectoscope per urethra, but unfortunately his meatus would not accommodate this. He was relatively pinpoint and I was able to use male dilators to dilate this to 28 [place]. I then was able to advance the scope without difficulty. The remainder of his urethra was free of strictures but he has a very large prostate with substantial lateral lobe hypertrophy as well as an intravesical median lobe. I attempted to inspect the bladder but the size of the prostate made visual inspection of the full bladder somewhat challenging. 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 Following my inspection I utilized a loop electrode to remove the intravesical median lobe and flatten the posterior aspect of the bladder neck. This allowed better visualization and confirmation of the location of the ureters. The remainder of the bladder was actually quite healthy, the inside of the diverticulum had healthy appearing mucosa without abnormalities. I then proceeded to continue resection of the lateral lobes beginning with the left and proceeding to the right. I concluded my resection by trimming apical tissue and a small amount of anterior tissue. This proved to be a very large volume resection but achieved excellent results with a widely patent prostatic urethra. After irrigating all chips out of the bladder and passing them off the table for pathology, I proceeded to obtain meticulous hemostasis. After confirming that all chips were evacuated I placed a 22 [place] three-way Callahan catheter. The urine was quite clear but I started very gentle CBI as a precaution. He was reversed of anesthesia and taken to the recovery room in stable condition. There were no complications. I attest to the content of the Intraoperative Record and any orders documented therein. Any exceptions are noted below.
[2023-12-04] MEDS: SODIUM CHLORIDE 0.9% 500 ML IV SCH (16:12)
[2023-12-04] MEDS: CIPROFLOXACIN / D5W 400 MG/200 ML BAG IV SCH (16:54)
[2023-12-04] MEDS: FLUTICASONE/VILANTEROL 200/25MCG 14 PUFFS/INHALER INH SCH (20:11)
[2023-12-04] MEDS: PANTOprazole 40 MG TAB PO SCH (20:13)
[2023-12-04] MEDS: METOPROLOL SUCC 50MG EXT REL TAB PO SCH (20:13)
[2023-12-04] MEDS: MEMANTINE HCL 5 MG TAB PO SCH (20:13)
[2023-12-04 23:12] VITALS: RESP 18
[2023-12-04] MEDS: SODIUM CHLORIDE 0.9% 1,000 ML IV SCH (23:56)
[2023-12-05] MEDS: LEVOTHYROXINE SODIUM 137 MCG TABLET PO SCH (05:57)
[2023-12-05 07:07] VITALS: BP 159/79; PULSE 69; TEMP 99.1; O2SAT 96
[2023-12-05 07:23] LABS: Basophils # (auto) 0.06 K/uL (0.00-0.20); Basophils % (auto) 0.5 %; Hematocrit (blood only) 33.7 % (42.0-52.0); Hemoglobin 10.2 g/dl (14.0-18.0); Immature Granulocytes # (auto) 0.08 K/uL (0.01-0.20); Immature Granulocytes % (auto) 0.6 %; Lymphocytes # (auto) 1.06 K/uL (1.20-3.40); Mean Corpuscular Hemoglobin 23.9 pg (25.0-34.0); Mean Corpuscular Hgb Conc 30.3 g/dL (32.0-36.0); Mean Corpuscular Volume 78.9 fL (80.0-100.0); Mean Platelet Volume 9.3 fL (9.4-12.4); Monocytes # (auto) 1.63 K/uL (0.11-0.59); Monocytes % (auto) 12.2 %; Neutrophils # (auto) 10.08 K/uL (1.40-6.50); Neutrophils % (auto) 75.7 %; Platelet Count 207 K/uL (130-400); RDW Standard Deviation 45.5 fL (36.4-46.3); Red Blood Count 4.27 M/uL (4.70-6.10); White Blood Count 13.31 K/ul (4.8-10.8)
[2023-12-05 07:27] LABS: BUN Creatinine Ratio 18.5 (10-20); Calcium 8.2 mg/dl (8.6-10.3); Est GFR (African American) 68.4 ml/min; Potassium 3.5 mmol/L (3.5-5.1)
--- NOTE | 2023-12-05 08:32 | Urology Progress Note ---
Date of Service December 05, 2023 Assessment & Plan (1) Benign prostatic hyperplasia with urinary obstruction: Plan Status post TURP Clamp CBI now Plan for voiding trial if his urine remains relatively clear over the next hour Hope for discharge home later today Creatinine 1.1, hemoglobin stable He is anticoagulated and I would like him to hold his anticoagulation until at least Sunday/Sunday Admission and Anticipated Discharge Date Admission Date: December 04, 2023 Subjective Did relatively well overnight No major issues with CBI running relatively slowly Urine has remained relatively clear with this Labs stable this morning Physical Exam Physical Exam: Urine very light pink on slow CBI I clamped this Results & Data Vital Signs (Past 12 Hours) Vital Signs Temp Pulse Resp BP BP Pulse Ox O2 Del Method 12/05/23 07:06 37.3 C 69 18 159/79 H 96 Room Air 12/05/23 03:04 36.9 C 74 18 165/94 H 98 Room Air 12/04/23 23:21 186/99 H 12/04/23 23:20 193/91 H 12/04/23 23:00 36.5 C 85 18 185/101 H 93 Room Air PG Care Time/CCT Total # of Minutes Spent Total Time Spent with Patient: Total time spent is greater than 50% in coordination of care (as documented) at patient's floor/unit and/or counseling patient: Coding Level of Care Code None Diagnoses Benign prostatic hyperplasia with urinary obstruction N40.1; N13.8
[2023-12-05] MEDS: SERTRALINE HCL 100 MG TABLET PO SCH (08:49)
[2023-12-05] MEDS: LOSARTAN POTASSIUM 50 MG TAB PO SCH (08:50)
[2023-12-05] MEDS: MONTELUKAST SODIUM 10 MG TABLET PO SCH (08:50)
[2023-12-05] MEDS: ATORVASTATIN 40 MG TAB PO SCH (08:50)
[2023-12-05] MEDS: FUROSEMIDE 20 MG TAB PO SCH (08:51)
[2023-12-05] MEDS: DONEPEZIL HCL 10 MG TAB PO SCH (08:51)
[2023-12-05] MEDS: CETIRIZINE HCL 10 MG TABLET PO SCH (08:51)
[2023-12-05] MEDS: POTASSIUM CHLORIDE CRTAB 20 MEQ TABCR PO SCH (08:52)
[2023-12-05] MEDS ORDERED: PANTOprazole 40 MG TAB PO SCH (09:00)
--- NOTE | 2023-12-05 14:50 | Discharge Summary ---
Date of Service December 05, 2023 Admission HPI Per Admitting Provider Patient was BPH with urinary obstruction here for transurethral resection of prostate Admission Exam Per Admitting Provider Constitutional well developed and well nourished Neck neck nontender Respiratory normal respiratory effort; no respiratory distress and does not use accessory muscles Cardiovascular Rate/Rhythm: regular rate Vessels: radial pulses present Extremities: no edema Gastrointestinal (Abdomen) Inspection/Auscultation: abdomen normal to inspection Percussion/Palpation: abdomen soft; abdomen nontender and no guarding Musculoskeletal Head/Neck/Chest: normocephalic and head atraumatic Extremities: extremities normal to inspection Skin no rashes and no lesions Trauma: no evidence of skin trauma Neurologic awake; not obtunded Speech / Cognition: normal speech Motor/Sensory: no tremor Psychiatric Orientation: alert and oriented x 3 Genitourinary no CVA tenderness Lymphatic no lymphadenopathy Principal Diagnosis BPH with urinary obstruction Discharge Exam Constitutional well developed and well nourished; no acute distress ENMT Ears: + hearing impairment Respiratory normal respiratory effort; no respiratory distress and no labored breathing Gastrointestinal (Abdomen) Inspection/Auscultation: abdomen normal to inspection Musculoskeletal Head/Neck/Chest: normocephalic Neurologic moves all extremities and awake Psychiatric Orientation: alert and oriented to person Genitourinary Callahan patent and draining yellow urine with intermittent pink to phillips with CBI clamped Discharge Data Allergies Allergy/AdvReac Type Severity Reaction Status Date / Time grass pollen Allergy Mild Watery Verified 12/04/23 12:05 eyes, runny nose tetracycline Allergy Mild RASH Verified 12/04/23 12:05 Procedures Performed Operation Date: 12/04/23 13:10 Actual Procedures p TURP (Transurethral Resection of Prostate)(Not Applicable) - Geovanny Galvan MD Hospital Course (1) Benign prostatic hyperplasia with urinary obstruction: Plan Status post TURP Clamp CBI now Plan for voiding trial if his urine remains relatively clear over the next hour Hope for discharge home later today Creatinine 1.1, hemoglobin stable He is anticoagulated and I would like him to hold his anticoagulation until at least Sunday/Sunday Patient passed voiding trial this afternoon, he is ready for discharge Expected clinical course reviewed, all questions answered Total Time Total Time Spent Total Time Spent (In Minutes): 29 Discharge Plan Discharge Items Patient Disposition: Home - Self-Care Reason For Visit: BPH with Lower Urinary Tract Symptoms, other Discharge Diagnosis: BPH with Lower Urinary Tract Symptoms Activity: Per Instructions section Lifting: No more than 25 pounds Bathing Comment: Okay to shower after discharge Sexual Activity: Wait until after follow-up appointment Exercise/Sports: Wait until after follow-up appointment Driving/Machine Use: No driving while taking prescription pain medication Non-emergency contact: Surgeon and Urologist Call non-emergency contact if: your pain is not controlled, you have a fever and your temperature is above 101 Follow-up/Referrals: Sofía Garcia CRNP [Primary Care Provider] - Diet: Regular Addtl Attending Provider Instructions: Please take all medications as prescribed and keep all follow-ups as scheduled. Please call our office at [phone] with any questions, concerns or need to reschedule appointments for any reason. We are happy to assist you. Okay to resume Aspirin on Sunday, Dec 06 Resume Eliquis on Dec 09 if urine is clear to light pink. Call office if there are any questions/concerns. Tips for your recovery at home: Dont be alarmed by brownish or reddish blood or clots in your urine. This is a result of the procedure. This may occur off and on for weeks to months after the procedure but should continue to improve. Drink plenty of fluids during the day (enough to keep your urine very light colored). This will help keep a healthy flow of urine. Do not lift >25 lbs until your followup Avoid constipation. Please use a stool softener (Colace) for the first two weeks after your procedure Be sure to finish the antibiotics as prescribed. If you go home with a catheter, please wash tubing where it enters your body twice daily with mild soap (Dove or Dial). Once your catheter is removed, expect some blood in your urine and some burning when you urinate. You should have an appointment to have this removed, if you do not please call our office to arrange. Pending Studies at Discharge: Yes (pathology) Stand-Alone Forms: [employer], Smoking Cessation Medications and DC Order Prescriptions: New nitrofurantoin monohyd/m-cryst [Macrobid] 100 mg capsule 100 mg PO DAILY Qty: 20 0RF Continued budesonide-formoterol [Symbicort] 160-4.5 mcg/actuation HFA aerosol inhaler 2 puff INH BID Qty: 10.2 5RF Patient Comments: takes prn sob potassium chloride 10 mEq capsule, extended release 20 meq PO DAILY Qty: 180 0RF metoprolol succinate 50 mg tablet extended release 24 hr 50 mg PO BID Qty: 180 3RF atorvastatin 80 mg tablet 80 mg PO QAM Qty: 90 3RF Rx Instructions: TAKE 1 TABLET BY MOUTH DAILY. albuterol sulfate [Ventolin HFA] 90 mcg/actuation HFA aerosol inhaler See Rx Instructions .ROUTE .COMPLEX Qty: 18 5RF Dose Instruction: INHALE 2 PUFFS EVERY 4 TO 6 HOURS NEEDED FOR SHORTNESS OF BREATH ORWHEEZING Rx Instructions: INHALE 2 PUFFS EVERY 4 TO 6 HOURS NEEDED FOR SHORTNESS OF BREATH ORWHEEZING sertraline 100 mg tablet 100 mg PO QAM Qty: 90 3RF memantine 5 mg tablet 5 mg PO BID Qty: 180 1RF Rx Instructions: for memory pantoprazole 40 mg tablet,delayed release (DR/EC) 40 mg PO BID Qty: 180 3RF losartan 100 mg tablet 100 mg PO QAM Qty: 90 3RF furosemide [Lasix] 20 mg tablet 20 mg PO DAILY Qty: 30 2RF montelukast 10 mg tablet 10 mg PO DAILY Qty: 90 3RF Zyrtec 10 mg capsule 10 mg PO QAM Qty: 90 1RF azelastine 137 mcg (0.1 %) aerosol,spray 2 spray intranasal BID PRN (Reason: Nasal Congestion) Qty: 30 0RF finasteride 5 mg tablet 5 mg PO QAM Qty: 90 3RF sildenafil [Viagra] 100 mg tablet 100 mg PO DAILY PRN (Reason: sexual activity) Qty: 10 8RF Rx Instructions: administer 30 minutes to 4 hours before activity loperamide 2 mg capsule 2 mg PO Q4H PRN (Reason: Diarrhea) Rx Instructions: administer after each loose stool until symptoms controlled; do not exceed 8 mg per 24 hrs Lactobacillus acidophilus Capsule 10 mg PO QAM nitroglycerin 0.4 mg tablet, sublingual 0.4 mg sublingual Q5M PRN (Reason: chest pain) Qty: 10 0RF Rx Instructions: do not exceed 3 doses per episode levothyroxine [Synthroid] 137 mcg tablet 137 mcg PO QAM donepezil 10 mg tablet 10 mg PO QAM omeprazole 20 mg capsule,delayed release(DR/EC) 20 mg PO QAM Rx Instructions: [facility] 08/23/23 Held apixaban 5 mg tablet 5 mg PO BID Qty: 60 2RF Hold Instructions: Resume on 12/10/23. Okay to resume on 12/09 if urine is clear to light pink, call urology if you there is question/concern aspirin 81 mg tablet,chewable 81 mg PO DAILY Hold Instructions: Resume on 12/07/23. Okay to resume aspirin on 12/06 Discontinued tamsulosin 0.4 mg capsule 0.4 mg PO HS Qty: 90 3RF Discharge Orders: Discharge Order (Routine); Ordered 12/05/23 Ordered By: Olivia Penaloza/Other Patient Handouts: TURP, TURP Home Recovery Admission Data Admit Date/Time: 12/04/23 14:16 Attending Provider: Geovanny Galvan Admit Provider: Geovanny Galvan Primary Care Provider: Sofía Garcia Other Interventions: Discharge Summary Assessment (RN) Last Done: 12/05/23 14:44 Coding Level of Care Code 96355 IN/OBS DISCH 30 MIN/LESS Diagnoses Benign prostatic hyperplasia with urinary obstruction N40.1; N13.8
== END 2023-12-05 15:09 | disposition home or self-care (01) ==
LOC: 3E 11:34 → ASU 11:34